=== PATIENT | female | born 1940 | race Caucasian/White ===

== ENCOUNTER 2016-04-20 09:30 | Inpatient (IN) | payer MEDICARE ==
--- NOTE | 2016-04-12 20:08 | HP ---
HISTORY AND PHYSICAL: DATE OF SURGERY/ADMISSION: 04/20/16 PROCEDURE: Right total hip arthroplasty. HISTORY OF PRESENT ILLNESS: Ms. Bradshaw is a 75-year-old female with complaints of right hip pain. She has failed conservative management and has elected to proceed with a right total hip arthroplasty which is scheduled for 04/20/[address] Laureano. PAST MEDICAL HISTORY: 1. Anxiety. 2. Depression. 3. Cervical and lumbar stenosis. 4. Heart attack. 5. Stroke. 6. Skin cancer. 7. Mitral valve prolapse. 8. Hypertension. 9. GERD. 10. Osteoarthritis. 11. Fibromyalgia. 12. Hypothyroidism. PAST SURGICAL HISTORY: 1. Thyroidectomy. 2. Pilonidal cyst removal. 3. Hysterectomy. 4. Cervical fusion. 5. Appendectomy. CURRENT MEDICATIONS: 1. Levothyroxine. 2. Methadone. 3. Diltiazem. 4. Citalopram hydrobromide. ALLERGIES: 1. NSAIDS. 2. PENICILLIN. 3. SULFA. 4. IV DYE. 5. ALL ANTIBIOTICS. 6. HYDROCODONE. 7. ASPIRIN. 8. ALBUTEROL. 9. FENTANYL. FAMILY HISTORY: Alzheimer's, heart disease, asthma, and emphysema. SOCIAL HISTORY: She is a 75-year-old female. She is . Lives alone. She smokes a pack a day of cigarettes for over 50 years. She does not use drugs or alcohol. REVIEW OF SYSTEMS: A complete 14-point review of systems was reviewed with the patient, was positive for light-headedness, history of stroke, seizure, hypothyroidism. She denies any bleeding disorders. She denies history of DVT or pulmonary embolism. PHYSICAL EXAMINATION GENERAL: She is well developed, well nourished in no acute distress. VITAL SIGNS: She stands 5 feet 5 inches tall, weighs 147 pounds. Her blood pressure is 124/54. Heart rate 70. HEENT: Normocephalic, atraumatic. NECK: Supple. No palpable lymph nodes. Trachea is midline. PULMONARY: The lungs are clear to auscultation. No wheezes, rhonchi, or rales. CARDIO: Regular rate and rhythm. Strong S1, S2. No murmurs, gallops, or rubs. ABDOMEN: Soft, nontender, nondistended. NEUROLOGICAL: She is alert and oriented x3. Cranial nerves II through XII are intact. MUSCULOSKELETAL: Right lower extremity: The skin is intact. She walks with an antalgic-type gait favoring her right leg. She has limited range of motion with internal and external rotation of her right hip. She has 2+ dorsalis pedis pulses, intact sensation and her lower extremity muscle group strengths are intact at 5/5. ASSESSMENT AND PLAN: Ms. Bradshaw is a 75-year-old female with complaints of right hip pain. She has failed conservative management and has elected to proceed with a right total hip arthroplasty. The surgery is scheduled for 04/20/[address] Laureano discussed the risks and benefits of the surgery today and all of her questions were answered. Coumadin was sent to her pharmacy for postoperative DVT prophylaxis. She is currently on methadone, which is being managed by Dr. Fermin and we are waiting to hear his recommendations for postoperative pain control. She was cleared by her typecasting machine operator, Dr. Cordova, for the procedure. She will see Dr. Laureano back after the surgery in 10 to 14 days. MELODIE ROD [id number]/[facility] #: [id number] [facility] HOSPITALCaitlin
[~2016-04-20 09:30] MED LIST: Buffered Lidocaine 1% SYRIN* 3 ML/SYR SYRINGE INTRADERM ONE; Famotidine IV* 10 MG/ML 2 ML (20 mg) IV ONE; Gabapentin CAP(*) 300 MG PO ONE
--- NOTE | 2016-06-07 20:08 | HP ---
HISTORY AND PHYSICAL: DATE OF ADMISSION/SURGERY: 06/16/16 DATE OF OFFICE VISIT: 06/04/16 PROCEDURE: Right total hip arthroplasty. SURGEON: Leigh Ann Laureano MD CHIEF COMPLAINT: Right hip pain. HISTORY OF PRESENT ILLNESS: Ms. Bradshaw is a 76-year-old female with complaints of right hip pain. She has failed conservative management and she has elected to proceed with the right total hip arthroplasty, which is scheduled for 06/16/16. PAST MEDICAL HISTORY: Anxiety, depression, bipolar disorder, cervical and lumbar stenosis, coronary artery disease, stroke, melanoma, mitral valve prolapse, hypertension, GERD, osteoarthritis, fibromyalgia, and hypothyroidism. PAST SURGICAL HISTORY: Thyroidectomy, pilonidal cyst removal, hysterectomy, cervical fusion, and appendectomy. CURRENT MEDICATIONS: 1. Levothyroxine. 2. Methadone. 3. Diltiazem. 4. Citalopram hydrobromide. ALLERGIES: To NSAIDs, PENICILLIN, SULFA, IV DYE, ALL ANTIBIOTICS, HYDROCODONE, ASPIRIN, ALBUTEROL, and FENTANYL. FAMILY HISTORY: Alzheimer's, heart disease, asthma, and emphysema. SOCIAL HISTORY: She is 76-year-old female, she is . She lives alone. She smokes half a pack a day for the last 50 years. She denies use of drugs or alcohol. REVIEW OF SYSTEMS: A complete 14-point review of systems was reviewed with the patient, positive for history of stroke, seizures, and hypothyroidism. She denies a history of HIV, hepatitis C, anesthesia problems, history of DVT, or pulmonary embolism. PHYSICAL EXAMINATION GENERAL: She is well-developed, well-nourished, in no acute distress. She is alert and oriented x3. VITAL SIGNS: She stands 5 feet 5 inches tall, weighs 147 pounds. Her blood pressure 130/80, her heart rate 60. HEENT: Normocephalic, atraumatic. NECK: Supple. No palpable lymph nodes. Trachea is midline. PULMONARY: Lungs are clear to auscultation bilaterally. No wheezes or rhonchi. CARDIO: Regular rate and rhythm. Strong S1, S2. No murmurs, gallops, or rubs. ABDOMEN: Soft, nontender, nondistended. NEUROLOGIC: Cranial nerves are II through XII are intact. MUSCULOSKELETAL: Right lower extremity, skin is intact. She has limited range of motion with internal and external rotation of her right hip. She walks with a slightly antalgic type gait, favoring her right leg. Her lower extremity muscle group strengths are intact at 5/5. She has intact sensation and 2+ dorsalis pedis pulses. ASSESSMENT AND PLAN: Ms. Bradshaw is a 76-year-old female with complaints of right hip pain secondary to advanced osteoarthritis. She has elected to proceed with a right total hip arthroplasty, which is scheduled for 06/16/[address] Laureano discussed the risks and the benefits of the surgery at today's visit and all of her questions were answered. She will follow up with Dr. Laureano 10 to 14 days after the surgery. MELODIE ROD [id number]/[facility] #: [id number] MTDD
[2016-06-16] MEDS ORDERED: Dexamethasone IV* 4 MG/ML 1 ML (4 MG) IV SLOW PU ONE (06:00)
[2016-06-16] MEDS ORDERED: Famotidine IV* 10 MG/ML 2 ML (20 mg) IV ONE (06:00)
[2016-06-16] MEDS ORDERED: Buffered Lidocaine 1% SYRIN* 3 ML/SYR SYRINGE INTRADERM ONE (06:00)
[2016-06-16] MEDS ORDERED: Famotidine IV* 10 MG/ML 2 ML (20 mg) ONE (07:20)
[2016-06-16] MEDS ORDERED: Dexamethasone IV* 4 MG/ML 1 ML (4 MG) ONE (07:20)
[2016-06-16] MEDS ORDERED: Clindamycin 900 MG IVPREMIX(* 900 MG/50 ML SDV IV ONE (07:21)
[2016-06-16] MEDS ORDERED: HYDROmorphone* 1 MG/ML 1 ML SYR ONE ×3 (07:37→10:32)
[2016-06-16] MEDS ORDERED: fentaNYL* 50 MCG/ML 2 ML VIAL (100 MCG VIAL) ONE (07:37)
[2016-06-16] MEDS ORDERED: Midazolam* 1 MG/ML 2 ML VIAL (2 MG) ONE (07:37)
[2016-06-16] MEDS ORDERED: Morphine PF AMP (0.5MG/ML)* 5 MG/10 ML AMP ONE (07:38)
[2016-06-16] MEDS ORDERED: Bupivacaine 0.5% SDV PF* 30 ML VIAL ONE ×2 (07:39→08:55)
[2016-06-16] MEDS ORDERED: Dexmedetomidine* 200 MCG/2 ML 2 ML VIAL ONE ×2 (07:39→08:55)
[2016-06-16] MEDS ORDERED: Propofol* 10 MG/ML 20 ML BTL IV PUSH ONE (08:55)
[2016-06-16] MEDS ORDERED: Meperidine SYRINGE* 50 MG/ML ONE (09:06)
[2016-06-16] MEDS ORDERED: Magnesium Hydroxide LIQ* 30 ML UDC PO PRN (11:24)
[2016-06-16] MEDS ORDERED: Polyethylene Glycol 3350* 17 GM PACKET PO PRN (11:24)
[2016-06-16] MEDS ORDERED: Acetaminophen TAB* 325 MG PO PRN (11:24)
[2016-06-16] MEDS ORDERED: Bisacodyl SUPP* 10 MG SUPP PR PRN (11:24)
[2016-06-16] MEDS ORDERED: LACTULOSE* 30 ML UDC PO PRN (11:24)
--- NOTE | 2016-06-16 11:24 | RAD ---
HISTORY: Right hip replacement COMPARISONS: March 01, 2016 VIEWS: 1, portable intraoperative view of the right hip during arthroplasty FINDINGS: Single portable view of the right hip at 9:20 AM demonstrates a right hip arthroplasty with the temporary femoral sizing component IMPRESSION: LIMITED PORTABLE VIEW OF THE RIGHT HIP DURING HIP ARTHROPLASTY
--- NOTE | 2016-06-16 13:02 | RAD ---
INDICATION: Postoperative right hip arthroplasty COMPARISON: Hips March 01, 2016 TECHNIQUE: AP and abducted views of the right hip were acquired FINDINGS: Bones: There is right hip arthroplasty. The prosthesis appears well seated. A cerclage wire is present at the level of the intratrochanteric region. Joint spaces: Right hip arthroplasty. IMPRESSION: RIGHT HIP ARTHROPLASTY.
[2016-06-16] MEDS ORDERED: diPHENhydraMINE IV* 50 MG/ML 1 ml VIAL (BENADRYL) IV PRN (13:08)
[2016-06-16] MEDS ORDERED: Ondansetron INJ* 2 MG/ML VIAL IV PRN (13:08)
[2016-06-16] MEDS ORDERED: DiMENhydriNATE IV* 50 MG/ML VIAL IV PUSH PRN (13:08)
[2016-06-16] MEDS ORDERED: Naloxone* 0.4 MG/ML 1 ML VIAL IV PRN (13:08)
[2016-06-16] MEDS ORDERED: PROCHLORPERAZINE INJ 5 MG/ML 2 ML VIAL IV PRN (13:08)
[2016-06-16] MEDS ORDERED: Nalbuphine* 20 MG/ML 1 ML VIAL IV PRN (13:08)
--- NOTE | 2016-06-16 16:58 | CONS ---
[facility] MEDICINE CONSULTATION REPORT: DATE OF CONSULT: 06/16/16 ATTENDING PHYSICIAN: Dr. Leigh Ann Laureano. CONSULTATION PHYSICIAN: Dr. Cynthia Pizano (dictation provided by Ngoc Orozco NP). REASON FOR CONSULT: Medical co-management in a patient admitted for right total hip arthroplasty. HISTORY OF PRESENT ILLNESS: Ms. Bradshaw is a 76-year-old female with past medical history of anxiety, depression, bipolar disorder, transient ischemic attack, low back pain, hypothyroidism, and heart attack in 1987, who presented to the hospital on 06/16/16 for an elective right total hip arthroplasty with Dr. Laureano. Please see the dictated H and P from Dr. Laureano for complete details. In brief, the patient had failed conservative management and opted for a right total hip arthroplasty today. Ms. Bradshaw is interviewed immediately after her surgery. She provides limited information, but does note that she had thyroidectomy and is currently on levothyroxine. She agrees that she did have history of heart attack, but she is unable to provide me with details. I do note from Dr. Cordova's note from February of 2016 that this heart attack occurred in 1987. She is not currently on any medications other than diltiazem for this cardiac history. The patient states that prior to coming in for surgery, she was feeling in normal state of health. PAST MEDICAL HISTORY: 1. Anxiety. 2. Depression. 3. Bipolar disorder. 4. Cervical lumbar stenosis. 5. History of coronary artery disease with history of SC in 1987. 6. History of transient ischemic attack. 7. History of melanoma. 8. Mitral valve prolapse. 9. Hypertension. 10. GERD. 11. Osteoarthritis. 12. Fibromyalgia. 13. Hypothyroidism. MEDICATIONS: Outpatient are: 1. Levothyroxine 125 mcg daily. 2. Methadone 10 mg 5 times daily. 3. Diltiazem 120 mg daily. 4. Citalopram 10 mg p.o. daily. ALLERGIES: To NSAIDs, PENICILLIN, SULFA, IV DYE, "ALL ANTIBIOTICS," HYDROCODONE , ASPIRIN, ALBUTEROL, and FENTANYL. FAMILY HISTORY: The patient reports both of her parents from old age. SOCIAL HISTORY: The patient lives alone. She gets around with a rolling walker. She states she smokes half a pack of cigarettes per day and has done so for the past 50 years. She denies alcohol or drug use. She states that her friend, Ofelia, would be the healthcare proxy. REVIEW OF SYSTEMS: A 14-point review of systems was completed with Ms. Bradshaw today and all those not mentioned above were negative. PHYSICAL EXAM: Vital Signs: Temperature 96.8, heart rate 51, respiratory rate 16, O2 saturation 100% on 3 L nasal cannula, blood pressure of 105/44. General : Ms. Bradshaw is lying in the bed in the PACU. She is no acute distress. Her only complaint is of having a dry mouth. Neuro: She is alert and oriented x3. She moves all extremities equally. There is no facial asymmetry or focal weakness. Extraocular movements are intact. Lungs are clear to auscultation bilaterally with no accessory muscle use and good aeration. Heart: S1, S2. No murmur, rub, or gallop, and regular. Abdomen is soft and nontender with bowel sounds positive x4. Extremities: No cyanosis or edema. Skin is intact. LABORATORY DATA: On 06/04/16, WBC 10.1, hemoglobin 13.1, hematocrit 40, platelet count 267. Sodium 135, potassium 4.8, chloride 99, serum bicarbonate 33, BUN 11, creatinine 0.72, glucose 82. ASSESSMENT AND PLAN: Ms. Bradshaw is a 76-year-old female with past medical history of coronary artery disease back in 1987 as well as a transient ischemic attack and hypothyroidism, who presents today to the hospital with plans for right total hip arthroplasty. Our recommendations are as follows: 1. Postoperative day 0, status post right total hip arthroplasty: Management will be per Orthopedics. The patient will have PT and OT. The patient will have pain medications with bowel regimen. Her H and H will be monitored. 2. Hypothyroidism. Continue thyroid medication. 3. Hypertension. Continue diltiazem. 4. DVT prophylaxis. Per Ortho. 5. Disposition. To surgical floor. TIME SPENT: Approximately 60 minutes was spent on admission of this patient; more than half the time was spent with the patient at bedside reviewing the events leading up to this hospitalization, performing the physical examination, and reviewing my plan [place] [id number]/[facility] #: [id number] KIARA
[2016-06-16] MEDS ORDERED: Warfarin TAB(*) 6 MG PO ONE (17:00)
[2016-06-16] MEDS: oxyCODONE/Acetamin 5/325 MG* TAB PO PRN ×2 (19:23→22:21)
[2016-06-16] MEDS: Artificial Tear OPHTH.OINT* 3.5 GM RIGHT EYE SCH ×3 (19:26→23:50)
[2016-06-16] MEDS: Docusate CAP* 100 MG PO SCH (21:59)
[2016-06-17] MEDS ORDERED: Ondansetron TAB* 4 MG PO PRN (01:00)
[2016-06-17] MEDS ORDERED: oxyCODONE/Acetamin 5/325 MG* TAB PO PRN (01:00)
[2016-06-17] MEDS ORDERED: diPHENhydraMINE IV* 50 MG/ML 1 ml VIAL (BENADRYL) IV PRN (01:00)
[2016-06-17] MEDS ORDERED: Morphine INJ* 2 MG/ML 1 ML SYRINGE IV PRN (01:00)
[2016-06-17] MEDS ORDERED: oxyCODONE TAB* 5 MG TAB PO PRN (01:00)
[2016-06-17] MEDS: Methadone TAB* 10 MG PO PRN ×3 (01:22→15:28)
[2016-06-17] MEDS: Artificial Tear OPHTH.OINT* 3.5 GM RIGHT EYE SCH ×8 (03:46→23:49)
[2016-06-17] MEDS: oxyCODONE/Acetamin 5/325 MG* TAB PO PRN ×3 (04:04→19:19)
[2016-06-17 05:19] LABS: BUN/Creatinine Ratio 16.9 (8-20); Calcium 8.3 mg/dL (8.6-10.3); EGFR African American 128.1 (>60); EGFR Non-African American 99.6 (>60); Potassium 3.8 mmol/L (3.5-5.0)
[2016-06-17] MEDS: Levothyroxine TAB* 125 MCG TAB PO SCH (05:22)
[2016-06-17 07:00] LABS: Hematocrit 30 % (35-47); Hemoglobin 9.9 g/dl (12.0-16.0)
[2016-06-17] MEDS ORDERED: Vancomycin(*) 1,000 MG in NS 0.9% 250 ML* 250 ML IVPB ONE (08:00)
[2016-06-17] MEDS ORDERED: NS 0.9% 250 ML* 250 ML ONE (08:18)
[2016-06-17] MEDS: Docusate CAP* 100 MG PO SCH ×2 (08:48→19:19)
[2016-06-17] MEDS: Enoxaparin(*) 30 MG/0.3 ML SYR SUBCUT SCH (08:48)
[2016-06-17] MEDS: Citalopram TAB* 10 MG PO SCH (08:48)
[2016-06-17] MEDS ORDERED: Diltiazem CD CAP* 120 MG PO SCH (09:00)
[2016-06-17] MEDS: Diltiazem CD CAP* 120 MG PO SCH (09:57)
--- NOTE | 2016-06-17 10:57 | PN ---
Progress Note - Progress Note SOAP: Subjective: []Patient seen sitting at edge of her bed. Appears to be quite comfortable. Denies SOB, CP or dizziness. Objective: [] Vital Signs Temp 98.0 F 06/17/16 07:03 Pulse 63 06/17/16 07:03 Resp 18 06/17/16 09:52 BP 111/47 06/17/16 07:03 Pulse Ox 97 06/17/16 08:00 Intake & Output 06/16/16 06/17/16 06/17/16 18:59 06:59 18:59 Intake Total 2840 2165 680 Output Total 750 1500 600 Balance 2090 665 80 Weight 167 lb Intake: IV Fluids 2750 980 900MG CLINDAMYCIN 50 LR 2700 980 Oral 90 1185 680 Output: Urine 600 Pretty 750 1500 Other: Estimated Blood Loss 200 Comment Laboratory Results - last 24 hr 06/17/16 06/17/16 04:50 06:50 Hgb 9.9 L Hct 30 L Sodium 131 L Potassium 3.8 Chloride 103 Carbon Dioxide 21 L Anion Gap 7 BUN 10 Creatinine 0.59 Est GFR ( Amer) 128.1 Est GFR (Non-Af Amer) 99.6 BUN/Creatinine Ratio 16.9 Glucose 159 H Calcium 8.3 L Right hip dressing is intact and dry +DF/PF right ankle calf NT and soft neurovascularly intact Assessment: []s/p Right total hip arthroplasty POD #1 Plan: []PT/OT-WBAT Coumadin with Lovenox bridge INR pending, dose to follow
--- NOTE | 2016-06-17 13:15 | OP ---
OPERATIVE REPORT: DATE OF OPERATION: 06/16/16 DATE OF : 44 SURGEON: Leigh Ann Laureano MD AUTOMOBILE MECHANIC APPRENTICE: MELODIE Faulkner This multimedia assistant was crucial throughout the procedure for prepping, retraction, manipulation of the le g and did help throughout the procedure. ANESTHESIOLOGIST: Dr. Hightower. ANESTHESIA: Spinal. PRE-OP DIAGNOSIS: Severe end-stage degenerative osteoarthritis of the right hip joint. POST-OP DIAGNOSIS: Severe end-stage degenerative osteoarthritis of the right hip joint. OPERATIVE PROCEDURE: Right total hip arthroplasty. COMPLICATIONS: None. EBL: 300 cc. SPECIMEN: Femoral head and acetabular reaming sent to pathology. HARDWARE USED: This is uncemented Arabi total hip hardware. For the cup, a Tritanium hemispheric al shell 56D, 115 mm and 120 mm 6.5 plate screw was used. MDM liner cement was 42E. For the stem, an Accolade TMZF size 3.5 with a 127-degree neck. For the head, a Arabi LFIT V40 femoral head 28, +0 and for the insert, a methodist MDM X3 28/48/42E. One Dall-Miles Cable, 2.0 beaded cable was used prophylactically before placement of the femoral stem. BRIEF HISTORY/INDICATIONS: Ms. Bradshaw is a 76-year-old female with years of increasingly severe h ip pain. Radiographs showed prior dysplasia with severe end- stage degeneration of the joint. Femo ral head and acetabulum had deformity and goqq-so-creo contact. The patient failed conservative mitra atment with antiinflammatories, pain medication, ambulatory assistive devices and intraarticular inj ection. She elected to undergo right total hip arthroplasty due to continued pain and decreased malcom lity of life. Informed consent was obtained from the patient. She understood the risks of the proc edure included but were not limited to bleeding, infection, damage to nearby structures, continued p ain, need for further surgery, intraoperative fracture, nerve palsy, hardware failure, loosening, di slocation, leg length discrepancy, stroke, heart attack, blood clot and . She wished to procee d. INTRAOPERATIVE FINDINGS: Intraoperatively, the patient had deformity of the superolateral acetabulu m and femoral head. Complete loss of cartilage. Osteopenia was noted. DESCRIPTION OF PROCEDURE: Ms. Bradshaw was identified in the preanesthesia unit. The right lower ex tremity was marked as the correct operative side. Informed consent was signed and placed in the [facility] rt. The patient was taken to the operating room and placed under spinal anesthesia. A Pretty cathet er was placed. Right lower extremity was prepped and draped in the usual sterile fashion. Preop ti me-out was made to correctly identify the patient, side and site. Appropriate perioperative antibio tics were given within 1 hour of incision. A 12 cm posterior hip incision was made with a #10 blade and carried down to the lateral fascial lay er. Lateral fascial layer was incised in line with the skin incision. Charnley retractor was place d. The piriformis and conjoint tendons were identified. These were elevated off the posterolateral femur using electrocautery and tagged with two #5 Ethibond. Next, electrocautery was used to make a standard posterolateral capsular flap. This was also tagged with two #5 Ethibond. The hip was ca refully dislocated. The femoral head was noted to have extreme deformation. Lesser troch to the tahir ter of the femoral head was estimated at 55 mm. The appropriate femoral neck cut was made using an oscillating saw. Femoral head was sent to pathology. The femur was retracted anteriorly. After appropriate placement of retractors, the acetabulum was w ell visualized. Long-handled knife was used to remove any remaining labrum from the acetabular rim. There was significant deformation and loss of bone along the superolateral acetabulum. The acetab ulum was sequentially reamed up to a size 56. A 56 trial had good fit. A 56 Trident Tritanium nevaeh spherical shell was chosen as the final implant. A good bleeding bone bed had been obtained. This cup was impacted into the acetabulum and had good stability. There was appropriate anteversion and a bduction angle. 115 mm and 120 mm screws placed in the superior posterior quadrant for extra stabil ity. An MDM cement with liner 42E was chosen and impacted into the acetabulum. Stability of the li ner was checked and rechecked and noted to be stable. Next, attention was turned to preparation of the proximal femur. Canal finder was used to enter the proximal femur. It was noted that the proximal femur was significantly osteopenic. The femur was sequentially broached up to a size 3.5. A 3.5 broach had good stability and appropriate anteversion . A 127-degree neck trial was chosen as well as the 28, +0 femoral head. Hip was reduced and taken through a range of motion. The hip was stable in all positions. Leg lengths and soft tissue tensi on were deemed to be appropriate. A broach was left in place. One Dall-Miles Cable was placed around the proximal femur using the linda ropriate technique. This cable was placed prophylactically due to the patient's significant osteope benjamin. Next, the trials were removed. Final implant for the femoral stem was an Accolade TMZF size 3.5 wit h 127-degree neck. This was impacted into the femoral canal. There was excellent stability and ante version. The head chosen was an LFIT E40 femoral head 28, +0. The insert chosen was a 28/48/42E, M DM methodist X3 insert. This was impacted onto the femoral neck without difficulty. The hip was r educed and taken through a range of motion. The hip was stable in all positions. The hip was copiously irrigated with sterile saline. Previously tagged capsule and tendons were nicolás pproximated to the posterolateral femur through 2 trochanteric drill holes. The lateral fascial lay er was reapproximated using an interrupted #1 Vicryl's. The rest of the incision was closed in a la yered fashion using 0 and 2-0 Vicryl's. Skin was closed using running 3-0 Monocryl and Dermabond. Sterile Adaptic, 4x4s and paper tapes were used to cover the incision. The patient's anesthesia was reversed without difficulty. She was taken to the PACU in stable condi tion. Intended weightbearing will be weightbearing as tolerated with posterior hip precautions. In tended DVTs prophylaxis will be Coumadin with Lovenox bridge. [id number]/[facility] #: [id number]
[2016-06-17] MEDS ORDERED: Warfarin TAB(*) 6 MG PO ONE (17:00)
--- NOTE | 2016-06-17 17:04 | PN ---
Subjective Date of Service: 06/17/16 Interval History: Pt feels well. Post op pain controlled Objective Active Medications: Acetaminophen (Tylenol Tab*) 650 mg PO Q4H PRN PRN Reason: PAIN OR TEMPERATURE Artificial Tears (Lacrilube Oint*) 1 applic RIGHT EYE Q3HR [facility] Last Admin: 06/17/16 14:24 Dose: Not Given Bisacodyl (Dulcolax Supp*) [address] DAILY PRN PRN Reason: constipation Citalopram Hydrobromide (Celexa Tab*) 10 mg PO DAILY [facility] Last Admin: 06/17/16 08:48 Dose: 10 mg Diltiazem HCl (Cardizem Cd Cap*) 120 mg PO DAILY [facility] Last Admin: 06/17/16 09:57 Dose: 120 mg Diphenhydramine HCl (Benadryl Iv*) 12.5 mg IV Q6H PRN PRN Reason: PRURITIS Docusate Sodium (Colace Cap*) 100 mg PO BID [facility] Last Admin: 06/17/16 08:48 Dose: 100 mg Enoxaparin Sodium (Lovenox(*)) 30 mg SUBCUT Q24H [facility] Last Admin: 06/17/16 08:48 Dose: 30 mg Lactated Ringer's (Lactated Ringers 1000 Ml Bag*) 1,000 mls @ 100 mls/hr IV PER RATE [facility] Last Admin: 06/17/16 01:23 Dose: 100 mls/hr Lactulose (Lactulose*) 30 ml PO Q6H PRN PRN Reason: constipation Levothyroxine Sodium (Synthroid Tab*) 125 mcg PO DAILY@0600 [facility] Last Admin: 06/17/16 05:22 Dose: 125 mcg Magnesium Hydroxide (Milk Of Magnesia Liq*) 30 ml PO Q6H PRN PRN Reason: constipation Methadone HCl (Dolophine Tab*) 10 mg PO Q6H PRN PRN Reason: NOT SPECIFIED Last Admin: 06/17/16 15:28 Dose: 10 mg Morphine Sulfate (Morphine Inj (Syringe)*) 2 mg IV Q2H PRN PRN Reason: PAIN Ondansetron HCl (Zofran Tab*) 4 mg PO Q6H PRN PRN Reason: NAUSEA Oxycodone HCl (Roxycodone Tab*) 10 mg PO Q4H PRN PRN Reason: SEVERE PAIN Oxycodone/Acetaminophen (Percocet 5/325 Tab*) 1 tab PO Q3H PRN PRN Reason: PAIN - MODERATE Oxycodone/Acetaminophen (Percocet 5/325 Tab*) 2 tab PO Q3H PRN PRN Reason: PAIN - MODERATE Last Admin: 06/17/16 12:41 Dose: 2 tab Polyethylene Glycol/Electrolytes (Miralax*) 17 gm PO DAILY PRN PRN Reason: Constipation Warfarin Sodium (Coumadin Tab(*)) 6 mg PO ONCE@1700 ONE PRN Reason: Protocol Stop: 06/17/16 17:01 Vital Signs 06/16/16 06/16/16 06/16/16 18:38 19:23 19:38 Temperature 97.4 F Pulse Rate 58 Respiratory 16 20 20 Rate Blood Pressure 121/56 (mmHg) O2 Sat by Pulse 100 Oximetry 06/16/16 06/16/16 06/16/16 20:25 21:23 22:21 Temperature 97.9 F Pulse Rate 59 Respiratory 16 16 16 Rate Blood Pressure 120/54 (mmHg) O2 Sat by Pulse 99 Oximetry 06/16/16 06/17/16 06/17/16 23:51 00:21 01:22 Temperature 98.0 F Pulse Rate 58 Respiratory 16 16 16 Rate Blood Pressure 124/76 (mmHg) O2 Sat by Pulse 97 Oximetry 06/17/16 06/17/16 06/17/16 03:22 03:37 04:04 Temperature 97.8 F Pulse Rate 58 Respiratory 16 16 18 Rate Blood Pressure 121/44 (mmHg) O2 Sat by Pulse 99 Oximetry 06/17/16 06/17/16 06/17/16 05:55 07:03 07:52 Temperature 98.0 F Pulse Rate 63 Respiratory 16 16 18 Rate Blood Pressure 111/47 (mmHg) O2 Sat by Pulse 97 Oximetry 06/17/16 06/17/16 06/17/16 08:00 09:52 11:03 Temperature Pulse Rate Respiratory 18 18 Rate Blood Pressure (mmHg) O2 Sat by Pulse 97 98 Oximetry 06/17/16 06/17/16 06/17/16 11:17 12:41 14:41 Temperature 98.2 F Pulse Rate 67 Respiratory 16 18 16 Rate Blood Pressure 105/34 (mmHg) O2 Sat by Pulse 98 Oximetry 04/27/17 04/27/17 15:28 15:30 Temperature 98.2 F Pulse Rate 72 Respiratory 18 16 Rate Blood Pressure 122/48 (mmHg) O2 Sat by Pulse 98 Oximetry Oxygen Devices in Use Now: None Appearance: 76 yo F in nAd, AAOx3 Eyes: No Scleral Icterus, PERRLA Ears/Nose/Mouth/Throat: NL Teeth, Lips, Gums, Mucous Membranes Moist Neck: NL Appearance and Movements; NL JVP, Trachea Midline Respiratory: Symmetrical Chest Expansion and Respiratory Effort, Clear to Auscultation Cardiovascular: NL Sounds; No Murmurs; No JVD, RRR Abdominal: NL Sounds; No Tenderness; No Distention Lymphatic: No Cervical Adenopathy Extremities: No Edema, No Clubbing, Cyanosis Skin: No Nodules or Sclerosis, - - R post op hip examined, post op dressings not removed Neurological: Alert and Oriented x 3, NL Muscle Strength and Tone Result Diagrams: 06/17/16 06:50 06/17/16 04:50 Assess/Plan/Problems-Billing Assessment: 76 yo F with h/o depression, HTN, hypothyroidism s/p elective R hip replacement - Patient Problems (1) Status post total replacement of right hip Comment: as per Dr. Laureano Plan to d/c home in 1-2 days (2) Hypothyroidism Comment: cont Synthroid (3) HTN (hypertension) Comment: Controlled, cont Cardizem (4) Depression Comment: controlled, cont Celexa (5) DVT prophylaxis Comment: coumadin/Lovenox as per ortho (6) Acute blood loss as cause of postoperative anemia Comment: Hb down to 9 post op. no transfusion indicated Status and Disposition: Thank you for consult. will sign off for now, please call if needed.
[2016-06-17] MEDS: Cyclobenzaprine TAB* 10 MG PO PRN (21:15)
[2016-06-18] MEDS: Artificial Tear OPHTH.OINT* 3.5 GM RIGHT EYE SCH ×5 (02:14→13:53)
[2016-06-18] MEDS: Methadone TAB* 10 MG PO PRN ×2 (03:29→10:45)
[2016-06-18] MEDS: Levothyroxine TAB* 125 MCG TAB PO SCH (05:47)
[2016-06-18] MEDS: Cyclobenzaprine TAB* 10 MG PO PRN ×2 (05:52→14:40)
[2016-06-18 07:01] LABS: Hematocrit 29 % (35-47); Hemoglobin 9.6 g/dl (12.0-16.0); Mean Platelet Volume 9 um3 (7.4-10.4)
[2016-06-18] MEDS: Diltiazem CD CAP* 120 MG PO SCH (08:20)
[2016-06-18] MEDS: oxyCODONE/Acetamin 5/325 MG* TAB PO PRN (08:21)
[2016-06-18] MEDS: Docusate CAP* 100 MG PO SCH (08:21)
[2016-06-18] MEDS: Citalopram TAB* 10 MG PO SCH (08:21)
[2016-06-18] MEDS: Enoxaparin(*) 30 MG/0.3 ML SYR SUBCUT SCH (08:24)
--- NOTE | 2016-06-18 10:10 | PN ---
Progress Note - Progress Note SOAP: Subjective: Pt is doing well. Her pain is well controlled. She denies CP, SOB, calf pain or F/C. VSS overnight Objective: PE- 76 y/o F NAD, sitting in chair RLE- dressing changed, inc c/d/i, +F/E at knee, calf soft nontender, +2 DP pulse , sensation intact Vital Signs Temp Pulse Resp BP Pulse Ox 99.1 F 80 16 127/47 95 06/18/16 07:50 06/18/16 07:50 06/18/16 08:44 06/18/16 07:50 06/18/16 08:44 Laboratory Results - last 24 hr 06/17/16 06/18/16 06/18/16 11:05 06:07 06:07 Hgb 9.6 L Hct 29 L Plt Count 194 MPV 9 INR (Anticoag Therapy) 1.36 H 1.50 H Assessment: POD 2 S/P R ADELE Plan: DC home with VNS today Cont coumadin, colace and percocet WBAT cont PT/OT F/U 10-14 days post op
[2016-06-18 12:10] VITALS: BP 95/42
--- NOTE | 2016-06-19 04:23 | DS ---
DISCHARGE SUMMARY: DATE OF ADMISSION: 06/16/16 DATE OF SURGERY: 06/16/16 DATE OF DISCHARGE: 06/18/16 PROVIDERS: Leigh Ann Laureano MD ADMITTING DIAGNOSIS: Status post right total hip replacement due to severe right hip osteoarthritis . SECONDARY DIAGNOSES: 1. Anxiety. 2. Depression. 3. Cervical and lumbar stenosis. 4. Heart attack. 5. Stroke. 6. Skin cancer. 7. Mitral valve prolapse. 8. Hypertension. 9. Gastroesophageal reflux disease. 10. Osteoarthritis. 11. Fibromyalgia. 12. Hypothyroidism. HISTORY OF PRESENT ILLNESS: Ms. Bradshaw is a 76-year-old female who presented to the clinic with o ngoing right hip pain due to severe osteoarthritis. She failed conservative measures and therefore agreed to undergo a right total hip replacement with Dr. Laureano on 06/16/16. HOSPITAL COURSE: Ms. Bradshaw was admitted to [facility] on 06/16/16. She underwent [facility] total hip replacement with Dr. Laureano. Postoperatively, she recovered in the Short-Stay Surgical Unit. On postop day 1, the Pretty was removed. She was able to urinate on her own. She advanced to a regular diet without difficulty and her pain was controlled with oral pain medications. She was restarted on home medications. Her labs and vitals remained stable. She was able to weightbear as tolerated on the right lower extremity. She advanced appropriately with physical therapy and occupa tional therapy. DVT prophylaxis was managed with Lovenox and Coumadin until a therapeutic INR was r eached. The INR on 06/17/16 was 1.36 and on 06/18/16 was 1.50. Coumadin dose on 06/16/16 was 6 mg and on 06/17/16 was 6 mg. By postop day 2, she was orthopedically and medically stable for discharg e to home with VNS services. PHYSICAL EXAMINATION: General: A 76-year-old well-developed, well-nourished female, in no acute di stress, sitting in chair. Right lower extremity dressing was changed. Incision was clean, dry, and intact. Positive flexion and extension of the knee. Calf is soft and nontender; +2 dorsalis pedis pulse. Sensation intact to light touch. DISCHARGE CONDITION: Stable. DISCHARGE MEDICATIONS: Home medications continued on discharge to include: 1. Methadone 10 mg, see instructions. 2. Diltiazem 1 by mouth every morning. 3. Citalopram 10 mg by mouth daily. 4. Levothyroxine 125 mcg p.o. daily. New scripts on discharge to include: 1. Docusate 100 mg by mouth 2 to 3 times a day for constipation. 2. Warfarin 2 mg by mouth daily as directed by doctor. 3. Percocet 1 to 2 tabs every 4 to 6 hours as needed for pain. DISCHARGE INSTRUCTIONS: The patient may shower on postop day 4. Light dressing applied to the hip. Do not submerge in water to include bath or swimming pool. She is weightbearing as tolerated, righ t lower extremity. She should continue physical therapy and occupational therapy. She will follow posterior hip precautions. Percocet will be used for pain management, Colace for constipation, and she will continue Coumadin for DVT prophylaxis. Her dose on 06/18/16 will be 6 mg, on 06/19/16 will be 4 mg, and on 06/20/16 will be 4 mg and redraw on Tuesday. She will call the office or go to the [facility] if she develops chest pain, shortness of breath, calf pain, or fever greater than 101.5. She will follow up with Dr. Laureano in 10 to 14 days postop. MELODIE BEAUCHAMP [id number]/[facility] #: [id number]
== END 2016-06-18 15:55 | disposition home health service (06) | DRG 470 ==
LOC: AA 06-16 06:55 → SSU 06-16 11:24
PROVIDERS: ADMIT Orthopaedic Surgery Adult Reconstructive Orthopaedic Surgery; ATTEND Orthopaedic Surgery Adult Reconstructive Orthopaedic Surgery
PROC: 0SR90JA Replacement of Right Hip Joint with Synthetic Substitute, Uncemented, Open Approach (ICD-10-PCS; principal; 2016-06-16 08:30)
DX: M16.11 Unilateral primary osteoarthritis, right hip (principal); J44.9 Chronic obstructive pulmonary disease, unspecified; I34.1 Nonrheumatic mitral (valve) prolapse; D62 Acute posthemorrhagic anemia; F41.9 Anxiety disorder, unspecified; F32.9 Major depressive disorder, single episode, unspecified; M48.06 Spinal stenosis, lumbar region; E03.9 Hypothyroidism, unspecified; K21.9 Gastro-esophageal reflux disease without esophagitis; M79.7 Fibromyalgia; I10 Essential (primary) hypertension; F31.9 Bipolar disorder, unspecified; I25.10 Atherosclerotic heart disease of native coronary artery without angina pectoris; K58.9 Irritable bowel syndrome, unspecified; G47.33 Obstructive sleep apnea (adult) (pediatric); M85.88 Other specified disorders of bone density and structure, other site; F17.210 Nicotine dependence, cigarettes, uncomplicated; Z79.01 Long term (current) use of anticoagulants; Z86.73 Personal history of transient ischemic attack (TIA), and cerebral infarction without residual deficits; I25.2 Old myocardial infarction; Z90.710 Acquired absence of both cervix and uterus; Z88.6 Allergy status to analgesic agent; Z88.0 Allergy status to penicillin; Z88.2 Allergy status to sulfonamides; Z88.1 Allergy status to other antibiotic agents; Z91.041 Radiographic dye allergy status; Z88.8 Allergy status to other drugs, medicaments and biological substances; Z82.49 Family history of ischemic heart disease and other diseases of the circulatory system; Z82.5 Family history of asthma and other chronic lower respiratory diseases; Z81.8 Family history of other mental and behavioral disorders; Z85.820 Personal history of malignant melanoma of skin; Z98.1 Arthrodesis status
CPT/HCPCS: 36415; 80048; 85014; 85018; 85049; 85610; 88304; 88311; 94760; A9270-GY; C1713; C1776; J1100; J1170; J1650; J2250; J2704; J3010; J3370

== ENCOUNTER 2016-06-28 16:07 | Emergency (ER) | payer MEDICARE ==
[2016-06-28] MEDS ORDERED: Methadone TAB* 10 MG PO ONE (18:00)
--- NOTE | 2016-06-28 18:56 | ED ---
reno Power Timothy, scribed for Rick Christina MD on 06/28/16 at 1804 . Lower Extremity - HPI Summary HPI Summary: William Bradshaw is a 76 yo female presenting to [facility] with bilateral leg swelling and 7/10 pain with concern for DVT. She was seen by her home health nurse today which raised concern. She recently had a right hip operation, and returned home 06/25/16, and noticed swelling in her right lower extremity, and had thrush in her mouth. She states the pain is most on the inside of her right leg. There is pain in both legs, and she feels like she is unable to bear weight secondary to pain. She also c/o some SOB and cough today. She denies vomiting or diarrhea, but has had some nausea upon arrival to [facility]. She has self-medicated with oxycodone at 1000 this morning, and 10mg methadone. Her MHx includes thyroid disease, MO, mitral valve prolapse, angina, heart murmur, palpitations, fibromylagia, CVA, TIA, seizure, spinal cord deformities, bronchitis, kidney infection, osteoarthritis, bursitis in a shoulder, depression , anxiety, tobacco use. - History of Current Complaint Chief Complaint: EDExtremityLower Stated Complaint: R/O DVT-SENT BY DR ANDERSON Time Seen by Provider: 06/28/16 17:50 Hx Obtained From: Patient Onset of Pain: Days Onset/Duration: Still Present Severity Initially: Moderate Severity Currently: Moderate Pain Intensity: 7 Pain Scale Used: 0-10 Numeric Timing: Constant Location: Is Discrete @ - bilateral lower extremities Associated Signs And Symptoms: Positive: Swelling, Redness Aggravating Factor(s): Standing Able to Bear Weight: No - Allergies/Home Medications Allergies/Adverse Reactions: Allergies Allergy/AdvReac Type Severity Reaction Status Date / Time Aspirin Allergy Severe Swelling Verified 06/16/16 07:12 Of Face,Lips,& Throat Iodine Allergy Severe Hives, Verified 06/16/16 07:12 tongue swelling, throat closing Penicillins Allergy Severe hives, Verified 06/16/16 07:12 tongue swelling, throat closing Sulfa Antibiotics Allergy Severe Hives, Verified 06/16/16 07:12 tongue swelling, throat closing Chlorhexidine Allergy Intermediate redness, Verified 06/16/16 07:12 [From Hibiclens] rash Fentanyl Allergy Altered Verified 06/16/16 07:12 Mental Status, itching "all antibiotics except Allergy Severe Hives, Uncoded 06/16/16 07:12 azithromyci tongue swelling, throat closing "all otc pain relievers" Allergy Severe Hives, Uncoded 06/16/16 07:12 TONGUE SWELLING, THROAT CLOSING contrast dye Allergy Severe Anaphylatic Uncoded 06/16/16 07:12 Shock NSAIDS Allergy Severe TONGUE Uncoded 06/16/16 07:12 SWELLS, THROAT CLOSES tape Allergy Severe Blisters Uncoded 06/16/16 07:12 PMH/Surg Hx/FS Hx/Imm Hx Endocrine/Hematology History: Reports: Hx Thyroid Disease Denies: Hx Diabetes Cardiovascular History: Reports: Hx Angina - HX OF, Hx Valvular Heart Disease - MVP, Other Cardiovascular Problems/Disorders - MITRAL VALVE PROLAPSE Denies: Hx Congestive Heart Failure, Hx Hypertension, Hx Pacemaker/ICD Respiratory History: Reports: Hx Sleep Apnea - DX BUT DOES NOT USE CPAP, Other Respiratory Problems/Disorders - DENIES COPD BUT HAS BILAT INSP WHEEZING, DENIES SOB BUT IS NOT AMBULATORY GI History: Reports: Hx Gastroesophageal Reflux Disease, Hx Hiatal Hernia - long time ago, resolved with weight loss, Hx Irritable Bowel - controlled with diet, Other GI Disorders - CONSTIPATION History: Reports: Hx Kidney Infection Denies: Hx Dialysis, Hx Renal Disease Musculoskeletal History: Reports: Hx Arthritis - OSTEO, Hx Back Problems, Hx Bursitis - one of shoulders, Hx Tendonitis Sensory History: Reports: Hx Cataracts, Hx Contacts or Glasses - READING Denies: Hx Hearing Aid Opthamlomology History: Reports: Hx Cataracts, Hx Contacts or Glasses - READING Neurological History: Reports: Hx Seizures - HX OF TREATMENT FOR MINOR SEIZURES SOMETIMES BETWEEN [id number], Hx Transient Ischemic Attacks (TIA), Other Neuro Impairments/Disorders - STATES SHE GETS FUZZY, SHE HAS VERTIGO, SEVERAL TIA'2015 Comment Only: Hx Nerve Disease - HX OF FIBROMYALAGIA Psychiatric History: Reports: Hx Anxiety, Hx Depression Denies: Hx Panic Disorder - Cancer History Cancer Type, Location and Year: SKIN CARCINOMA-YEARS AGO - Surgical History Surgery Procedure, Year, and Place: THYROIDECTOMY - 12/2012, [facility]. 1992 CSP -C3 ,4,C5-6= FUSION, [facility]. OVARIES REMOVED -2001, [place], [place]. 1977 UTERUS- REMOVED, [facility]. APPENDECTOMY - 1963, (STATES APPENDIX RUPTURED, BUT DENIES SURGERY). 1969 RIGHT EYELID- REMOVED CHELAZIUM - [facility]. CARDIAC CATH - NO STENTS , [place], [place]. SPINAL SURGERY 2015. pylonidal cyst to lower spine surgicallly removed 1968 Hx Anesthesia Reactions: Yes - when given valium - changed in mentation - becomes mean Infectious Disease History: No Infectious Disease History: Reports: Hx Shingles - HX OF IN 2006 Denies: Hx Clostridium Difficile, Hx Hepatitis, Hx Human Immunodeficiency Virus (HIV), Hx of Known/Suspected MRSA, Hx Tuberculosis, History Other Infectious Disease, Traveled Outside the [place] in Last 30 Days - Family History Known Family History: Positive: Cardiac Disease, Hypertension Negative: Diabetes - Social History Alcohol Use: None Substance Use Type: Reports: None Hx Tobacco Use: Yes Smoking Status (MU): Heavy Every Day Tobacco Smoker Type: Cigarettes Amount Used/How Often: 1/2 ppd since 1963 Length of Time of Smoking/Using Tobacco: 51 YEARS Have You Smoked in the Last Year: Yes Review of Systems Constitutional: Negative Eyes: Negative ENT: Other - thrush Dx Cardiovascular: Negative Positive: Shortness Of Breath, Cough Positive: Nausea. Negative: Vomiting, Diarrhea Genitourinary: Negative Positive: Edema - bilateral lower extremities, Other - pain in lower extremities bilaterally Positive: Other - heat in legs bilaterally Neurological: Negative Psychological: Normal All Other Systems Reviewed And Are Negative: Yes Physical Exam - Summary Physical Exam Summary: The patient is well-nourished in no acute distress and in no acute pain, but slightly uncomfortable.. The skin is warm and dry and skin color reflects adequate perfusion. She is not diaphoretic or cyanotic. HEENT: The head is normocephalic and atraumatic. The pupils are equal and reactive. The conjunctivae are clear and without drainage. Nares are patent and without drainage. Mouth reveals dry mucous membranes and the throat is without erythema and exudate. There is no evidence of thrush in the throat. The external ears are intact. The ear canals are patent and without drainage. The tympanic membranes are intact. The tongue is bright red, when questioned Pt states she was sucking on something prior to exam. Neck is supple with full range of motion and non-tender. There are no carotid bruits. There is no neck vein distension. Respiratory: Chest is non-tender. There are crackles in the right base of the lungs. Cardiovascular: Hear is regular rate and rhythm. There is no murmur or rub auscultated. There is no peripheral edema and pulses are symmetrical and equal. Abdomen: The abdomen is soft and non-tender. There are normal bowel sounds heard in all four quadrants and there is no organomegaly palpated. Musculoskeletal: There is no back pain noted. There is good capillary refill. There is swelling of the right thigh with an incision from her recent surgery that does not look infected. There is some warmth on the inferior aspect around the incision, and swelling extends to the knee. There is no swelling of the lower leg. Neurological: Patient is alert and oriented to person, place and time. The patient has symmetrical motor strength in all four extremities. Cranial nerves are grossly intact. Deep tendon reflexes are symmetrical and equal in all four extremities. Psychiatric: The patient has an appropriate affect and does not exhibit any anxiety or depression. Triage Information Reviewed: Yes Vital Signs On Initial Exam: Initial Vitals Temp Pulse Resp BP Pulse Ox 99.3 F 76 20 146/63 97 06/28/16 16:09 06/28/16 16:09 06/28/16 16:09 06/28/16 16:09 06/28/16 16:09 Vital Signs Reviewed: Yes - Jo Coma Scale Coma Scale Total: 15 Diagnostics - Vital Signs Vital Signs Temp Pulse Resp BP Pulse Ox 06/28/16 16:11 99.1 F 74 20 146/63 98 06/28/16 16:09 99.3 F 76 20 146/63 97 - Laboratory Lab Statement: Any lab studies that have been ordered have been reviewed, and results considered in the medical decision making process. Lower Extremity Course/Dx - Course Assessment/Plan: William Bradshaw is a 76 yo female presenting to [facility] with bilateral leg swelling and 7/10 pain with heat since 06/25/16, as well as SOB and cough today. In the ED she received methadone for her pain. She will be signed out to Dr. Guerrero with cough and bilateral leg pain pending her lab work, CXR, and RLE US. - Diagnoses Differential Diagnosis/HQI/PQRI: Positive: DVT, Other - pneumonia Provider Diagnoses: Bilateral leg pain, Cough Discharge - Discharge Plan Condition: Stable Disposition: OTHER Discharge Disposition Comment: signed out to Dr. Gurerero pending lab work, CXR, and RLE US. Referrals: Shane Fermin MD [Primary Care Provider] - The documentation as recorded by the reno ash Timothy accurately reflects the service I personally performed and the decisions made by me, Rick Christina MD.
--- NOTE | 2016-06-28 19:14 | RAD ---
Indication: Cough and shortness of breath. Recent RIGHT hip surgery. Bilateral leg swelling. Concern for DVT in the RIGHT leg. Comparison: April 12, 2016 chest radiograph. Technique: Sitting AP and lateral chest views. Report: Moderate prominence of the interstitial markings increased over the prior exam. Subtle peripheral interlobular septal thickening. Negative for pleural effusion or pneumothorax. Negative for cardiomegaly. Unremarkable central pulmonary vasculature and mediastinal contours. IMPRESSION: The constellation of findings is concerning for mild interstitial pulmonary edema. Correlate with clinical presentation as bronchopneumonia could have a similar radiographic appearance.
--- NOTE | 2016-06-28 19:36 | RAD ---
INDICATION: RIGHT hip replacement June 18, 2016. RIGHT leg pain and edema. COMPARISON: None. TECHNIQUE: Olivo scale, color Doppler, and spectral analysis of the deep veins of the RIGHT lower extremity. Vessel compression, phasicity, and augmentation assessed. REPORT: The RIGHT common femoral, great saphenous, profunda femoral, femoral, popliteal, peroneal, and posterior tibial veins are patent. Patency of the LEFT common femoral vein documented. IMPRESSION: No evidence for RIGHT lower extremity deep venous thrombosis.
[2016-06-28 20:37] LABS: Albumin 3.5 g/dL (3.2-5.2); BUN/Creatinine Ratio 10.1 (8-20); Calcium 8.8 mg/dL (8.6-10.3); EGFR Non-African American 83.2 (>60); Potassium 4.1 mmol/L (3.5-5.0); Total Bilirubin 0.4 mg/dL (0.2-1.0); Total Protein 6.5 g/dL (6.4-8.9)
[2016-06-28 20:52] LABS: Hematocrit 32 % (35-47); Hemoglobin 10.4 g/dl (12.0-16.0); Mean Corpuscular HGB Conc 32 g/dl (31-36); Mean Corpuscular Hemoglobin 29 pg (27-31); Mean Corpuscular Volume 91 fL (80-97); Mean Platelet Volume 8 um3 (7.4-10.4); Red Blood Count 3.55 10^6/ul (4.0-5.4); Red Cell Distribution Width 15 % (10.5-15); White Blood Count 13.1 10^3/ul (3.5-10.8)
[2016-06-28 22:14] VITALS: BP 128/61
== END 2016-06-28 22:15 ==
LOC: ED 16:07
DX: M79.606 Pain in leg, unspecified (principal); R60.0 Localized edema; R06.02 Shortness of breath; R05 Cough; R11.0 Nausea
CPT/HCPCS: 36415; 71020; 80053; 85025; 85610; 99283; A9270-GY

== ENCOUNTER 2016-11-02 07:30 | Inpatient (IN) | payer MEDICARE ==
--- NOTE | 2016-10-27 16:20 | HP ---
PREOPERATIVE HISTORY AND PHYSICAL: DATE OF ADMISSION/SURGERY: 11/02/16 ATTENDING SURGEON: Leigh Ann Laureano MD * (DICTATED BY MELODIE BEAUCHAMP) PROCEDURE: Left total hip replacement. CHIEF COMPLAINT: Left hip pain. HISTORY OF PRESENT ILLNESS: Ms. Bradshaw is a 76-year-old female who presents to the clinic for ongoing left hip pain due to severe osteoarthritis. She has failed conservative measures and has therefore, agreed to undergo a left total hip replacement with Dr. Laureano on 11/02/16. PAST MEDICAL HISTORY: 1. UTI. 2. MN. 3. Hypertension. 4. Mitral valve prolapse. 5. GERD. 6. Spinal stenosis. 7. History of stroke. 8. Depression. 9. Anxiety. 10. Bipolar. 11. Hypothyroidism. 12. Fibromyalgia. 13. Melanoma. 14. Osteoarthritis. PAST SURGICAL HISTORY: 1. Hysterectomy. 2. Thyroidectomy. 3. Spinal stenosis surgery. 4. Spine surgery in 1992. 5. Cervical fusion. 6. Pilonidal cyst. 7. Appendectomy. 8. Right total hip arthroplasty. Denies prior complications with anesthesia. MEDICATIONS: 1. Cyclobenzaprine 10 mg 1 by mouth twice a day as needed. 2. Levothyroxine 125 mcg 1 by mouth daily. 3. Methadone 10 mg 1 by mouth 5 times a day. 4. Citalopram 10 mg once a day. 5. Cardizem CD 120 mg 1 by mouth every day. ALLERGIES: NSAIDS, PENICILLIN, SULFA ANTIBIOTICS, IV DYE, HYDROCODONE, ASPIRIN , ALBUTEROL, FENTANYL, ADHESIVE TAPE, OXYCODONE, TYLENOL. FAMILY HISTORY: Positive for heart disease, Alzheimer's, asthma, and emphysema. SOCIAL HISTORY: The patient is disabled. She currently smokes 2 to 3 cigarettes a day. She denies alcohol use or illegal drug use. REVIEW OF SYSTEMS: A 14-point review of systems was reviewed with the patient. Positive for the current complaint; otherwise negative. Denies chest pain, shortness of breath. Denies history of DVT or PE. Denies bleeding disorder. PHYSICAL EXAMINATION GENERAL: Well-developed, well-nourished 76-year-old female, in no acute distress. Alert and oriented x3. Appropriate mood and affect. VITAL SIGNS: Height 64, weight 161. Pulse 76, blood pressure 135/63, temperature 98.2. BMI 27.6. HEENT: Normocephalic, atraumatic. PERRLA. Throat clear. NECK: Supple. PULMONARY: Lungs clear to auscultation bilaterally. No wheezing, rhonchi, or rales. CARDIO: Regular rate and rhythm. S1 and S2. No murmurs, gallops, or rubs. No edema. ABDOMEN: Positive bowel sounds. Soft, nontender. NEURO: Alert and oriented x3. Cranial nerves grossly intact. Sensation intact to light touch. MUSCULOSKELETAL: Left lower extremity, skin is intact. No abrasions or open wounds. No palpable masses or lymph nodes. Hip flexion to 80 degrees, 0 degrees internal rotation or external rotation with groin pain. She cannot actively flex or abduct the hip. +5/5 strength to the ankle dorsiflexion and plantar flexion. +2 dorsalis pedis pulse. Sensation is intact to light touch distally. DIAGNOSTIC STUDIES: Multiple view x-rays of the left hip revealed severe bone- on- bone arthritis with severe deformity of the femoral head, subchondral sclerosis and cyst formation. IMPRESSION: Severe left hip osteoarthritis. PLAN: The patient is scheduled to undergo a left total hip replacement with Dr. Laureano on 11/02/16. She will return to us 10 to 14 days postop for followup and suture removal. The patient states that she does not tolerate oxycodone well and that she does not tolerate Coumadin well either. The patient is also allergic to TYLENOL. MELODIE BEAUCHAMP [id number]/[facility] #: [id number] [facility] HOSPITALCaitlin
[~2016-11-02 07:30] MED LIST changes: +Buffered Lidocaine 0.9% SYRIN* 5 ML/SYR SYRINGE INTRADERM ONE; -Buffered Lidocaine 1% SYRIN* 3 ML/SYR SYRINGE INTRADERM ONE; +Dexamethasone IV* 4 MG/ML 1 ML (4 MG) IV SLOW PU ONE; -Gabapentin CAP(*) 300 MG PO ONE
[2016-11-02] MEDS ORDERED: Propofol* 500 MG/50 ML BTL ONE (09:27)
[2016-11-02] MEDS ORDERED: Bupivacaine 0.5% SDV PF* 30 ML VIAL ONE (09:29)
[2016-11-02] MEDS ORDERED: Dexamethasone IV* 4 MG/ML 1 ML (4 MG) ONE (09:30)
[2016-11-02] MEDS ORDERED: Buffered Lidocaine 0.9% SYRIN* 5 ML/SYR SYRINGE ONE (09:30)
[2016-11-02] MEDS ORDERED: Famotidine IV* 10 MG/ML 2 ML (20 mg) ONE (09:30)
[2016-11-02] MEDS ORDERED: Clindamycin 900 MG IVPREMIX(* 900 MG/50 ML SDV IV ONE (09:30)
[2016-11-02] MEDS ORDERED: Midazolam* 1 MG/ML 10 ML VIAL (10 MG) ONE (11:33)
[2016-11-02] MEDS ORDERED: Morphine PF AMP (0.5MG/ML)* 5 MG/10 ML AMP ONE (11:34)
[2016-11-02] MEDS ORDERED: Sterile Water for Inj* 10 ML ONE (12:47)
[2016-11-02] MEDS ORDERED: EPHEDrine (Pressors)* 50 MG/ML VIAL ONE ×2 (12:47→13:06)
[2016-11-02] MEDS ORDERED: KETAMINE HCL* 50 MG/ML 10 ML VIAL ONE (12:55)
[2016-11-02] MEDS ORDERED: VASOPRESSIN 20 UNITS/ML 1 ML VIAL ONE (13:00)
[2016-11-02] MEDS ORDERED: Phenylephrine IV* 40 MCG/ML 10 ML SYRINGE ONE (13:04)
[2016-11-02] MEDS ORDERED: Glycopyrrolate IV* 0.2 MG/ML 1 ML VIAL ONE (13:05)
[2016-11-02] MEDS ORDERED: Ondansetron INJ* 2 MG/ML VIAL ONE (13:05)
[2016-11-02] MEDS ORDERED: Levalbuterol 0.63MG/3ML NEB* UNIT OF USE INH PRN (13:23)
[2016-11-02] MEDS ORDERED: oxyCODONE/Acetamin 5/325 MG* TAB PO PRN ×2 (13:23→18:35)
[2016-11-02] MEDS ORDERED: HYDROmorphone* 1 MG/ML 1 ML CARPUJECT IV PRN (13:23)
[2016-11-02] MEDS ORDERED: HYDROcodone/ACETAMIN 5-325 MG* 1 TAB PO PRN ×2 (13:23→18:35)
[2016-11-02] MEDS ORDERED: diPHENhydraMINE IV* 50 MG/ML 1 ml VIAL (BENADRYL) IV PRN ×2 (13:23→15:40)
[2016-11-02] MEDS ORDERED: Scopolomine PATCH Remove* 1 NOTE MISC PATCH OFF PRN (13:27)
[2016-11-02] MEDS ORDERED: Naloxone* 0.4 MG/ML 1 ML VIAL IV PRN (13:27)
[2016-11-02] MEDS ORDERED: Scopolamine 1.5 mg* PATCH TRANSDERM PRN (13:27)
--- NOTE | 2016-11-02 14:44 | RAD ---
Indication: Left hip replacement. Single view of the pelvis demonstrates left femoral reamer in place. Left acetabular cup in place. IMPRESSION: Intraoperative control film demonstrates left femoral reamer and left acetabular cup in place.
[2016-11-02] MEDS ORDERED: Magnesium Hydroxide LIQ* 30 ML UDC PO PRN (15:40)
[2016-11-02] MEDS ORDERED: Bisacodyl SUPP* 10 MG SUPP PR PRN (15:40)
[2016-11-02] MEDS ORDERED: Ondansetron INJ* 2 MG/ML VIAL IV PRN (15:40)
[2016-11-02] MEDS ORDERED: Acetaminophen TAB* 325 MG PO PRN (15:40)
[2016-11-02] MEDS ORDERED: Enoxaparin(*) 30 MG/0.3 ML SYR SUBCUT SCH (16:00)
[2016-11-02] MEDS ORDERED: D5W 1/2 NS 1000 ML BAG* 1,000 ML IV SCH (16:00)
[2016-11-02] MEDS ORDERED: ceFAZolin 1 GM VIAL(*) 1 GM in NS 0.9% 50 ML* 50 ML IVPB SCH (16:00)
--- NOTE | 2016-11-02 16:18 | RAD ---
HISTORY: Status post left hip arthroplasty COMPARISONS: October 30, 2016 VIEWS: 3, Frontal view of the pelvis with frontal and crosstable lateral views of the left hip FINDINGS: BONE DENSITY: Normal. BONES: The patient is status post bilateral hip arthroplasty. On the left, there is no hardware failure or osteolysis. JOINTS: The patient is status post bilateral hip arthroplasty. ALIGNMENT: There is no dislocation. SOFT TISSUES: Unremarkable. OTHER FINDINGS: Degenerative changes are noted of the spine IMPRESSION: STATUS POST BILATERAL HIP ARTHROPLASTY
[2016-11-02] MEDS ORDERED: Warfarin TAB(*) 6 MG PO ONE (17:00)
[2016-11-02] MEDS ORDERED: Sulfamethox/Trimethoprim DS 800/160* TAB PO SCH (21:00)
[2016-11-02] MEDS: Clindamycin 600 MG IVPREMIX(* 600 MG/50 ML SDV IV SCH (21:13)
[2016-11-02] MEDS: Docusate CAP* 100 MG PO SCH (21:20)
[2016-11-02] MEDS: oxyCODONE TAB* 5 MG TAB PO PRN (21:28)
--- NOTE | 2016-11-02 22:27 | CONS ---
CC: Dr. Fermin; Dr. Laureano * CONSULTATION REPORT: DATE OF CONSULT: 11/02/16 PRIMARY CARE PROVIDER: Dr. Fermin. ATTENDING PHYSICIAN WHILE IN THE HOSPITAL: Nura Adame MD (report dictated by Klaus Bateman NP). REQUESTING PHYSICIAN FOR CONSULTATION: Dr. Laureano. REASON FOR MEDICAL CONSULTATION: Evaluation and management of comorbid medical conditions. HISTORY OF PRESENT ILLNESS: I refer you to Dr. Laureano's H and P for further details. In short, Ms. Bradshaw is a 76-year-old female patient with a significant history of arthritis. She also has a history of GERD, hypertension , hypothyroidism, fibromyalgia, degenerative disk disease, arthritis, mitral valve prolapse, history of [place] and CVA. She came in to Dr. Laureano's services as she has been failing conservative measures and having ongoing left hip pain that was due to severe osteoarthritis that was affecting her activities of daily living. It was felt that she would benefit from a total hip replacement and because of that, she presented to the orthopedic service today and had a left total hip replaced. Because of her complex history, we were asked to evaluate in consult. She was evaluated in the PACU. She said that she is feeling well with the exception that when she goes to sit up, she is a little dizzy; but towards the end of my interview, she said actually the dizziness has gone away and she is feeling better. She denies having any chest pain. She denies having any shortness of breath. She denies having any abdominal pain. She denies feeling any nausea. She denies having any chest discomfort. She denies having any abdominal pain. Said she has a little bit of pain in her hip that is very well controlled. She has numbness in her lower extremities from her spinal anesthetic, but other than that she says that she is now wiggling her toes quite well. She denied having any headache, but because of her medical complexity, we were asked to evaluate in consult. PAST MEDICAL HISTORY: Significant for: 1. GERD. 2. Hypertension. 3. Hypothyroidism. 4. Fibromyalgia. 5. Degenerative joint disease. 6. Arthritis. 7. History of mitral valve prolapse. 8. History of [place]. 9. History of CVA. PAST SURGICAL HISTORY: She has had a: 1. Cervical spine surgery. 2. Hysterectomy. 3. Thyroidectomy. 4. Left total hip replacement done today. HOME MEDICATIONS: According to her list include: 1. Methadone 10 mg p.o. take as directed. 2. Synthroid 125 mcg daily. 3. Diltiazem extended release 1 capsule p.o. daily. 4. Flexeril 10 mg in the morning and 10 mg at bedtime. 5. Celexa 10 mg p.o. daily. ALLERGIES TO MEDICATIONS: Include ASPIRIN, IODINE, PENICILLIN, SULFA, CHLORHEXIDINE, COLACE, FENTANYL, ALL ANTIBIOTICS except azithromycin, ALL OTC PAIN RELIEVERS, CONTRAST DYE, NSAIDS and TAPE. FAMILY HISTORY: Her mother lived at the age of 101, of old age. Father in his 70s because of pneumonia. SOCIAL HISTORY: She still smokes about a half a pack a day, has been smoking her entire life. She does not drink alcohol. Surrogate decision maker, she does not wish to appointment one at this point. She does not know anybody that is close enough to her that would be willing to make those decisions. REVIEW OF SYSTEMS: There is no documented fever. She denied having any significant weight changes. There was no double vision. She denies having any ear discharge. There was no rhinorrhea. No sore throat. No thyroid enlargement. Denied having any chest pain. There is no orthopnea. No nocturnal dyspnea. There was no abdominal pain. No nausea, no vomiting. No dysuria, no frequency. There is no seizure. No loss of consciousness. No pruritus and no skin ulceration. Review of 14 systems completed, all others negative. PHYSICAL EXAM: Vital Signs: Blood pressure initially when she came in, she was 124/60. Preop and postop, 97/50 was the last reading, but she before that was 86/51, heart rate 78, respirations 20, O2 sat 96%, temperature 97.0. General: At this time, Ms. Bradshaw is a 76-year-old female patient. She is sitting in the PACU bed. She does not appear to be in any acute distress. HEENT: Head is atraumatic, normocephalic. Eyes: EOMs are intact. Sclerae anicteric and not pale. Neck: Supple. Throat: Oral mucosa appears to be moist. No oropharyngeal erythema. Heart: Sounds S1 and S2. Regular rate and rhythm. No murmurs, rubs or gallops. Lungs: Clear to auscultation bilaterally. No wheezes, rales or rhonchi. Abdomen: Soft, flat, nontender. Bowel sounds hypoactive. Extremities: Pulses were 2+ throughout. She is not able to move the lower extremities at this point because she is in a hip adductor pillow. Distal CSM checks are intact. Sensation is not intact yet and she has good circulation and good pulses bilaterally. Upper extremities, she had 5/5 strength. Neurologically, she is is awake, alert, oriented x3. Tongue midline. On Car Supervisor are equal. No gross focal deficits. Skin: Intact except in the left hip, there is an incision which is covered with an ABD dressing that is clean, dry and intact. DIAGNOSTIC STUDIES/LAB DATA: Preop revealed WBC of 11.2, RBC of 4.14, hemoglobin of 11.7, hematocrit of 36, platelet count of 296. The INR was 0.93. Sodium 135, potassium 4.5, chloride of 99, bicarb 31, BUN 10, creatinine 0.72 , glucose of 80. Total bili 0.3, AST 18, ALT 11. Urine showed 2+ leukocyte esterase, 2+ rbc's. She did have a negative urine culture. She had an EKG preop, which showed a normal sinus rhythm. No ST elevations or T -wave inversions. According to her cardiology notes, she had a stress test in September of this year, which showed no reversal of ischemia. She had a chest x-ray in June of this year, which showed constellation of findings concerning for mild interstitial pulmonary edema. I do not see a repeat one done since then. Old medical records were reviewed. ASSESSMENT AND PLAN: Ms. Bradshaw is a 76-year-old female patient coming to the orthopedic service for an elective total hip arthroplasty. We were asked to evaluate in consult. My recommendations at this point are: 1. Status post left total hip arthroplasty. I will defer the management to Dr. Laureano and her team. 2. History of myocardial infarction. She is not on a beta-pankaj and she is also not on a statin or an aspirin, she is allergic to an ASPIRIN. She is on diltiazem. We will continue with this. Monitor for chest pain. Currently, she could follow with her PCP and her Cardiology as well. 3. History of cerebrovascular accident. Again, allergic to ASPIRIN. She is not on any antiplatelet. This is something that could be considered, but I would not initiate this now. She is going to be on warfarin after and can follow with her primary. 4. Hypertension. Her blood pressure is on the low side here and it is probably contributing to the dizziness along with her anesthetic. We will go ahead and hydrate her. I am going to hold her diltiazem. She says it is improving with fluids, so I will continue to monitor this and continue to follow closely. 5. History of gastroesophageal reflux disease. Continue meds as prescribed. 6. History of hypothyroidism. Continue Synthroid. 7. History of fibromyalgia. She will be on narcotics while she is here and pain medications. So, I am going to hold her methadone. She can restart the methadone when she is discharged. 8. Degenerative disk disease. Follow with her primary. 9. Arthritis. Follow with her primary, it is stable. 10. History of mitral valve prolapse. Follow with Cardiology. 11. DVT prophylaxis. We will defer to primary team. 12. Code status. Full code. 13. Fluids, electrolytes, nutrition. I have recommended a heart healthy diet. 14. Tobacco abuse. I have recommended smoking cessation. TIME SPENT: Time spent on the consult was 60 minutes, greater than half the time was spent face to face with the patient obtaining my history and physical, the other half of the time was spent on going over the plan of care with the patient and implementing the place of care. I did discuss the plan of care with my attending Dr. Adame, he is in agreement. KLAUS BATEMAN NP [id number]/[facility] #: [id number] KIARA
[2016-11-03] MEDS: oxyCODONE TAB* 5 MG TAB PO PRN ×5 (01:04→23:12)
[2016-11-03] MEDS: Clindamycin 600 MG IVPREMIX(* 600 MG/50 ML SDV IV SCH ×2 (04:19→13:12)
[2016-11-03] MEDS ORDERED: Morphine INJ* 4 MG/ML 1 ML CARPUJECT IV PRN (04:30)
[2016-11-03] MEDS ORDERED: oxyCODONE/Acetamin 5/325 MG* TAB PO PRN ×2 (04:30)
[2016-11-03 05:43] LABS: Hematocrit 25 % (35-47); Hemoglobin 8.3 g/dl (12.0-16.0)
[2016-11-03 06:00] LABS: BUN/Creatinine Ratio 16.7 (8-20); EGFR African American 112.6 (>60); EGFR Non-African American 87.5 (>60); Potassium 3.7 mmol/L (3.5-5.0)
[2016-11-03] MEDS: Levothyroxine TAB* 125 MCG TAB PO SCH (06:05)
[2016-11-03] MEDS: Docusate CAP* 100 MG PO SCH ×2 (08:55→20:15)
[2016-11-03] MEDS: Citalopram TAB* 10 MG PO SCH (08:55)
[2016-11-03] MEDS: Vitamin THERAPEUTIC TAB PO SCH (08:56)
[2016-11-03] MEDS: Enoxaparin(*) 30 MG/0.3 ML SYR SUBCUT SCH (08:58)
[2016-11-03] MEDS ORDERED: DILTIAZEM HCL PO SCH ×2 (09:00)
--- NOTE | 2016-11-03 11:56 | PN ---
Progress Note - Progress Note Date of Service: 11/03/16 SOAP: Subjective: [Pt was seen this am sitting up in bed. She states that her hip is a little stiff today unlike the last time with the opposite hip. She aslo states that her knee is a little stiff today too. She denies any n/t. No chest pain, cough or SOB. No calf pain. ] Objective: [General: Pt is alert, awake and oriented. NAD LLE: Abduction pillow is still in place. Dressing is clean, dry and intact. Calf is soft and non tender. + df/pf. NVI. ] Vital Signs Temp 98.3 F 11/03/16 07:36 Pulse 72 11/03/16 11:23 Resp 16 11/03/16 11:23 BP 122/47 11/03/16 11:23 Pulse Ox 97 11/03/16 11:23 Intake & Output 11/02/16 11/03/16 11/03/16 18:59 06:59 18:59 Intake Total 1550 2614 225 Output Total 650 800 300 Balance 900 1814 -75 Weight 161 lb Intake: IV Fluids 1550 979 900MG CLINDAMYCIN 50 ABX - CLINDAMYCIN 68 LR 1500 911 Oral 1635 225 Output: Pretty 250 800 300 Estimated Blood Loss 400 Assessment: [POD 1 S/P LTHA] Plan: [ INR: 1.09, Warfarin 8mg tonight PT/OT Pretty out today D/C abduction pillow once up Dressing change tomorrow.
--- NOTE | 2016-11-03 13:29 | PN ---
Subjective Date of Service: 11/03/16 Interval History: Feels good. Just walked to the bathroom. Complains only of minor pain in the left hip. No chest pain, nausea, vomiting, constipation, or diarrhea. No fevers. Family History: Unchanged from Admission Social History: Unchanged from Admission Past Medical History: Unchanged from Admission Objective Active Medications: Acetaminophen (Tylenol Tab*) 650 mg PO Q4H PRN PRN Reason: PAIN OR TEMPERATURE Bisacodyl (Dulcolax Supp*) 10 mg RI DAILY PRN PRN Reason: constipation Citalopram Hydrobromide (Celexa Tab*) 10 mg PO DAILY [facility] [place] Last Admin: 11/03/16 08:55 Dose: 10 mg Diphenhydramine HCl (Benadryl Iv*) 25 mg IV Q6H PRN PRN Reason: itching or insomnia Docusate Sodium (Colace Cap*) 100 mg PO BID [facility] [place] Last Admin: 11/03/16 08:55 Dose: Not Given Enoxaparin Sodium (Lovenox(*)) 30 mg SUBCUT DAILY [facility] [place] Last Admin: 11/03/16 08:58 Dose: 30 mg Dextrose/Sodium Chloride (D5w 1/2 Ns 1000 Ml Bag*) 1,000 mls @ 75 mls/hr IV PER RATE [facility] [place] Last Admin: 11/03/16 03:19 Dose: 75 mls/hr Lactulose (Lactulose*) 30 ml PO Q6H PRN PRN Reason: constipation Levothyroxine Sodium (Synthroid Tab*) 125 mcg PO DAILY@0600 [facility] [place] Last Admin: 11/03/16 06:05 Dose: 125 mcg Magnesium Hydroxide (Milk Of Magnesia Liq*) 30 ml PO Q6H PRN PRN Reason: constipation Morphine Sulfate (Morphine Inj (Syringe)*) 2 mg IV Q2H PRN PRN Reason: PAIN - UNCONTROLLED Multivitamins (Theragran Tab*) 1 tab PO DAILY [facility] [place] Last Admin: 11/03/16 08:56 Dose: 1 tab Ondansetron HCl (Zofran Inj*) 4 mg IV Q6H PRN PRN Reason: nausea Last Admin: 11/03/16 13:16 Dose: 4 mg Oxycodone HCl (Roxycodone Tab*) 10 mg PO Q4H PRN PRN Reason: PAIN - SEVERE Last Admin: 11/03/16 13:10 Dose: 10 mg Oxycodone/Acetaminophen (Percocet 5/325 Tab*) 1 tab PO Q4H PRN PRN Reason: PAIN - MODERATE Oxycodone/Acetaminophen (Percocet 5/325 Tab*) 2 tab PO Q3H PRN PRN Reason: PAIN - MODERATE TO SEVERE Pharmacy Profile Note (Scopolomine Patch Remove*) 1 note PATCH OFF .AFTER 72 HOURS PRN PRN Reason: nausea Stop: 11/05/16 13:28 Warfarin Sodium (Coumadin Tab(*)) 8 mg PO ONCE@1700 ONE PRN Reason: Protocol Stop: 11/03/16 17:01 Vital Signs 11/02/16 11/02/16 11/02/16 15:35 15:40 15:45 Temperature 97.0 F Pulse Rate 75 75 77 Respiratory 16 20 18 Rate Blood Pressure 90/46 81/30 86/51 (mmHg) O2 Sat by Pulse 100 99 99 Oximetry 11/02/16 11/02/16 11/02/16 16:00 16:15 16:30 Temperature Pulse Rate 78 79 73 Respiratory 20 21 18 Rate Blood Pressure 98/71 90/51 (mmHg) O2 Sat by Pulse 96 98 97 Oximetry 11/02/16 11/02/16 11/02/16 16:46 17:08 17:50 Temperature 97.7 F Pulse Rate 71 70 Respiratory 18 13 18 Rate Blood Pressure 90/44 96/34 (mmHg) O2 Sat by Pulse 100 92 Oximetry 11/02/16 11/02/16 11/02/16 17:57 18:30 18:32 Temperature 97.7 F 97.4 F Pulse Rate 70 79 Respiratory 16 17 Rate Blood Pressure 96/34 95/34 (mmHg) O2 Sat by Pulse 92 96 98 Oximetry 11/02/16 11/02/16 11/02/16 19:19 19:52 21:21 Temperature 98.0 F 98.3 F 98.4 F Pulse Rate 85 80 96 Respiratory 18 17 18 Rate Blood Pressure 108/47 124/49 121/42 (mmHg) O2 Sat by Pulse 98 98 96 Oximetry 11/02/16 11/02/16 11/02/16 21:28 21:54 23:09 Temperature 98.5 F Pulse Rate 87 Respiratory 18 18 16 Rate Blood Pressure 136/91 (mmHg) O2 Sat by Pulse 98 Oximetry 11/03/16 11/03/16 11/03/16 00:56 01:00 01:04 Temperature Pulse Rate Respiratory 20 20 18 Rate Blood Pressure (mmHg) O2 Sat by Pulse Oximetry 11/03/16 11/03/16 11/03/16 02:10 02:35 03:26 Temperature 99.1 F Pulse Rate 73 Respiratory 16 18 Rate Blood Pressure 114/47 (mmHg) O2 Sat by Pulse 98 95 Oximetry 11/03/16 11/03/16 11/03/16 04:37 06:00 07:36 Temperature 98.3 F Pulse Rate 63 Respiratory 16 16 16 Rate Blood Pressure 106/44 (mmHg) O2 Sat by Pulse 96 Oximetry 11/03/16 11/03/16 11/03/16 08:00 08:56 10:56 Temperature Pulse Rate Respiratory 20 20 18 Rate Blood Pressure (mmHg) O2 Sat by Pulse 96 Oximetry 11/03/16 11/03/16 11:23 13:10 Temperature Pulse Rate 72 Respiratory 16 18 Rate Blood Pressure 122/47 (mmHg) O2 Sat by Pulse 97 Oximetry Oxygen Devices in Use Now: None Appearance: alert, sitting up in recliner, no distress Eyes: No Scleral Icterus, PERRLA Ears/Nose/Mouth/Throat: - - dentures Neck: NL Appearance and Movements; NL JVP, Trachea Midline Respiratory: Symmetrical Chest Expansion and Respiratory Effort, Clear to Auscultation Cardiovascular: NL Sounds; No Murmurs; No JVD, RRR Abdominal: NL Sounds; No Tenderness; No Distention, No Hepatosplenomegaly Lymphatic: No Cervical Adenopathy Extremities: No Edema, - - L hip incision clean Skin: No Rash or Ulcers Neurological: Alert and Oriented x 3, NL Sensation Result Diagrams: 11/03/16 05:35 11/03/16 05:35 Assess/Plan/Problems-Billing Assessment: 1. POD #1, left hip arthroplasty Pain controlled, ambulation/PT per ortho. 2. Hyponatremia corrected sodium for hyperglycemia is 132 (though glucose may be falsely elevated due to D5). Appears mildly volume deplete; would change 1/2 NS/D5 to NS. 3. Hyperglycemia May have been drawn from the arm where the D5 was running, as it does not correlate to prior glucose readings; she should have DM screening, as it may affect wound healing if she has a new diagnosis of DM. 4. HTN. Okay to resume cardizem. 5. History of CAD/CVA she is allergic to aspirin, so she should be on plavix. She is unsure if she has been put on plavix. Okay to hold post-op and while on warfarin, but this needs to be addressed as an outpatient and I discussed this with her. She should also be on a statin, which I am adding. 6. Normocytic Anemia Likely tash-operative blood loss; denies melena, hematochezia, no hematoma. Continue to monitor.
[2016-11-03] MEDS: NS 0.9% 1000 ML* 1,000 ML IV SCH ×2 (14:19→23:07)
[2016-11-03] MEDS: Calcium Carbonate CHEW TAB* 500 MG (TUMS) PO PRN (16:52)
[2016-11-03] MEDS ORDERED: Warfarin TAB(*) 4 MG PO ONE (17:00)
--- NOTE | 2016-11-03 17:10 | RAD ---
INDICATION: Left knee pain COMPARISON: None TECHNIQUE: AP and crosstable lateral views were obtained. FINDINGS: There is underlying osteopenia. The joint spaces are preserved. There is no joint effusion. There is no focal bony lesion. IMPRESSION: NO ACUTE FINDINGS. NO SIGNIFICANT OSTEOARTHRITIC CHANGES.
--- NOTE | 2016-11-03 17:24 | RAD ---
INDICATION: Left leg pain COMPARISON: Left hip November 02, 2016 TECHNIQUE: 2 views were obtained. FINDINGS: There is left hip arthroplasty. The prosthesis appears normally seated. There are no acute bony changes. The soft tissues are intact IMPRESSION: LEFT HIP ARTHROPLASTY. NO ACUTE FINDINGS.
[2016-11-03] MEDS: Atorvastatin* 10 MG TAB PO SCH (20:15)
--- NOTE | 2016-11-03 23:06 | OP ---
DATE OF OPERATION: 11/02/16 - ROOM #346 DATE OF : 44 ATTENDING SURGEON: Leigh Ann Laureano MD VOLUNTEER SERVICES DIRECTOR: MELODIE Zabala. Ruthie did help throughout the procedure with preparation of the leg, wound retraction, manipulation of the hip and wound closure. ANESTHESIOLOGIST: Dr. Trinidad Brown. ANESTHESIA: Spinal. PRE-OP DIAGNOSIS: Severe end-stage degenerative osteoarthritis of the left hip joint. POST-OP DIAGNOSIS: Severe end-stage degenerative osteoarthritis of the left hip joint. OPERATIVE PROCEDURE: Left total hip arthroplasty. COMPLICATIONS: None. ESTIMATED BLOOD LOSS: 400 cc. SPECIMEN: Femoral head and acetabular reaming sent to pathology. HARDWARE USED: This is [place] uncemented total hip hardware. For the cup, a Tritanium hemispherical shell 58F 120 mm and one 15 mm [place] gap plate screw, cementless MDM liner 46F. For the femoral stem, an Accolade TMZF size 4 with a 127- degree neck. For the head, an LFIT [place] V40 femoral head 28 -4. For the insert, a [place] MDM 28/52/46F. BRIEF HISTORY/INDICATIONS: Ms. 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 She has severe pain and has failed anti- inflammatories, pain medication, intraarticular injections, and physical therapy. Radiographs showed advanced arthritis of the joint with [id number] contact and acetabular deformity and wear. She elected to undergo left total hip arthroplasty due to continued pain and decreased quality of life. Informed consent was obtained from the patient. She understood the risks of the surgery included, but were not limited to bleeding, infection, damage to nearby structures, continued pain, need for further surgery, intraoperative fracture, nerve palsy, hardware failure or loosening, dislocation, leg length discrepancy, stroke, heart attack, blood clot, and . She wished to proceed. INTRAOPERATIVE FINDINGS: Intraoperatively, the patient had end-stage wear of the acetabulum with subchondral sclerosis and cyst formation, very thin medial wall was encountered. On the femoral side, significant osteopenia was encountered. DESCRIPTION OF PROCEDURE: Ms. Bradshaw was identified in the preanesthesia unit. Her left lower extremity was marked as the correct operative side. Informed consent was signed and placed in the chart. The patient was taken to the operating room and placed under spinal anesthesia. A Pretty catheter was placed. The patient was placed in the right lateral decubitus on the peg board with all bony prominences well padded. Left lower extremity was prepped and draped in the usual sterile fashion. Preop time-out was made to correctly identify the patient's side and site. Appropriate perioperative antibiotics were given within 1 hour of incision. A 12-cm posterior hip incision was made and carried down to the lateral fascial layer. Lateral fascial layer was incised in line with the skin incision. A Charnley retractor was placed. The piriformis and conjoint tendons were identified on the posterolateral capsule and elevated off the capsule using electrocautery. These were tagged with two #5 Ethibonds. Next, electrocautery was used to make a standard posterolateral capsular flap and this was also tagged with two #5 Ethibonds. The hip was carefully dislocated. The head was deformed with significant bone loss. Lesser troch to center of the femoral head was estimated to be around 52 mm. Oscillating saw was used to make the appropriate femoral neck cut. Femoral head was sent to pathology. The femur was carefully retracted anteriorly. After appropriate placement of retractors, the acetabulum was visualized. A long handled knife was used to remove any remaining labrum from the acetabular rim. The acetabulum was noted to have extreme loss of bone with thin bony rim, thin posterior wall and thin medial wall. The acetabulum was sequentially reamed up to a size 57. Bleeding subchondral bone was encountered. A 57 trial had good fit. Final implant chosen was a 58F Trident Tritanium hemispherical shell. This was impacted into the acetabulum without difficulty and had good fit. Anteversion and abduction angles were appropriate. One 15 mm and one 20 mm screws placed in the superior posterior quadrant. A MDM cementless liner 46F was chosen as the insert. This was impacted into the acetabular cup without difficulty. Stability of the insert was checked and rechecked and noted to be stable. Attention was next turned to preparation of the proximal femur. A canal finder was used to enter the proximal femoral canal. Once again, significant osteopenia was noted. Femoral canal was sequentially broached up to a size 4, which had good fit and appropriate anteversion. A 127-degree neck trial was chosen with a 28 +0 head trial. Lesser troch to center of the femoral head measured 60 mm. Therefore, a 28 -4 femoral head was chosen with an MDM insert, which was appropriate. The lesser troch to the center of the femoral head measured 55 mm. The hip was reduced and taken through a range of motion. The hip was stable in all positions with appropriate soft tissue tension. The hip was carefully dislocated. All trials were carefully removed. Final implant chosen was an Accolade TMZF size 4 with a 127-degree neck. This was impacted into the femoral canal without difficulty. Good stability and appropriate anteversion were obtained. Final head chosen was a [place] LFIT V40 femoral head 28 -4 with an MDM [place] X3 insert 28/52/46F. This was impacted on to the femoral neck without difficulty. The hip was reduced and taken through a range of motion. The hip was stable in all positions. The hip was copiously irrigated with sterile saline. The previously tagged capsule and tendons were reapproximated from the posterolateral femur. The lateral fascial layer was closed using interrupted #1 Vicryls. The rest of the incision was closed in a layered fashion using 0 and 2-0 Vicryls. Skin was closed using running 3-0 Monocryl and Dermabond. Sterile Adaptic, 4x4s and paper tape were used to cover the incision. The patient's anesthesia was reversed without difficulty. She was taken to the PACU in stable condition. Intended weightbearing will be weightbearing as tolerated. Intended DVT prophylaxis will be Coumadin with a Lovenox bridge. [id number]/[facility] #: [id number] KIARA
[2016-11-04] MEDS: oxyCODONE TAB* 5 MG TAB PO PRN ×5 (05:17→23:54)
[2016-11-04] MEDS: Levothyroxine TAB* 125 MCG TAB PO SCH (05:17)
[2016-11-04 06:57] LABS: Hematocrit 27 % (35-47); Hemoglobin 8.8 g/dl (12.0-16.0)
--- NOTE | 2016-11-04 09:17 | PN ---
Progress Note - Progress Note Date of Service: 11/04/16 SOAP: Subjective: [Pt reports she is doing fairly well. Pain improved since yesterday. Has been OOB WBAT L KATLYN, working with PT. Denies CP, SOB, Dizzines, n/v. Has appetite. Would like to go home tomorrow.] Objective: [A and O x 3, NAD. Seated in chair eating breakfast. L hip dressing changed. Surgical incision benign. Skin edges well- approximated. No erythema or drainage. Swelling down into thigh, compressible. Calves soft, [place]. Distal NV function, gross motor intact. Vital Signs: Temp Pulse Resp BP Pulse Ox 98.2 F 80 18 117/50 94 11/04/16 07:23 11/04/16 07:23 11/04/16 08:00 11/04/16 07:23 11/04/16 08:00 Laboratory Results - last 24 hr 11/03/16 11/04/16 11/04/16 05:35 06:33 06:33 Hgb 8.8 L Hct 27 L INR (Anticoag Therapy) 1.07 Hemoglobin A1c 5.7 ] Assessment: [76 you female s/p L ADELE POD #2] Plan: [Pain management Con't PT/OT Lovenox for DVT prophylaxis while in house D/C home on aspirin 325 mg bid Plan for D/C home tomorrow ]
[2016-11-04] MEDS: Citalopram TAB* 10 MG PO SCH (09:34)
[2016-11-04] MEDS: Diltiazem CD CAP* 120 MG PO SCH (09:34)
[2016-11-04] MEDS: Vitamin THERAPEUTIC TAB PO SCH (09:35)
[2016-11-04] MEDS: Docusate CAP* 100 MG PO SCH ×2 (09:35→20:44)
[2016-11-04] MEDS: Enoxaparin(*) 30 MG/0.3 ML SYR SUBCUT SCH (09:37)
--- NOTE | 2016-11-04 18:53 | PN ---
Subjective Date of Service: 11/04/16 Interval History: Patient seen and examined at bedside. Pt states that her pain is controlled. Denies fever, chills, shortness of breath, chest discomfort, N/V/D. Pt states that she isn't getting her home methadone here and that she has a headache. Family History: Unchanged from Admission Social History: Unchanged from Admission Past Medical History: Unchanged from Admission Objective Active Medications: Acetaminophen (Tylenol Tab*) 650 mg PO Q4H PRN Reason: PAIN OR TEMPERATURE Atorvastatin Calcium (Lipitor*) 5 mg PO BEDTIME MERY Reason: Protocol Bisacodyl (Dulcolax Supp*) 10 mg VA DAILY PRN Reason: constipation Calcium Carbonate (Tums*) 500 mg PO Q4H PRN Reason: INDIGESTION Citalopram Hydrobromide (Celexa Tab*) 10 mg PO DAILY MERY Diltiazem HCl (Cardizem Cd Cap*) 120 mg PO DAILY MERY Diphenhydramine HCl (Benadryl Iv*) 25 mg IV Q6H PRN Reason: itching or insomnia Docusate Sodium (Colace Cap*) 100 mg PO BID MERY Enoxaparin Sodium (Lovenox(*)) 30 mg SUBCUT DAILY [facility] Sodium Chloride (Ns 0.9% 1000 Ml*) 1,000 mls @ 125 mls/hr IV PER RATE MERY Lactulose (Lactulose*) 30 ml PO Q6H PRN Reason: constipation Levothyroxine Sodium (Synthroid Tab*) 125 mcg PO DAILY@0600 MERY Magnesium Hydroxide (Milk Of Magnesia Liq*) 30 ml PO Q6H PRN Reason: constipation Morphine Sulfate (Morphine Inj (Syringe)*) 2 mg IV Q2H PRN Reason: PAIN - UNCONTROLLED Multivitamins (Theragran Tab*) 1 tab PO DAILY MERY Ondansetron HCl (Zofran Inj*) 4 mg IV Q6H PRN Reason: nausea Oxycodone HCl (Roxycodone Tab*) 10 mg PO Q4H PRN Reason: PAIN - SEVERE Oxycodone/Acetaminophen (Percocet 5/325 Tab*) 1 tab PO Q4H PRN Reason: PAIN - MODERATE Oxycodone/Acetaminophen (Percocet 5/325 Tab*) 2 tab PO Q3H PRN Reason: PAIN - MODERATE TO SEVERE Pharmacy Profile Note (Scopolomine Patch Remove*) 1 note PATCH OFF .AFTER 72 HOURS PRN Reason: nausea Stop: 11/05/16 13:28 Vital Signs 11/03/16 11/03/16 11/03/16 19:28 20:00 20:10 Temperature Pulse Rate Respiratory 16 16 16 Rate Blood Pressure (mmHg) O2 Sat by Pulse Oximetry 11/03/16 11/03/16 11/03/16 20:22 23:12 23:53 Temperature 98.7 F 98.5 F Pulse Rate 69 77 Respiratory 18 16 16 Rate Blood Pressure 120/42 124/46 (mmHg) O2 Sat by Pulse 94 93 Oximetry 11/04/16 11/04/16 11/04/16 00:00 01:12 03:29 Temperature 98.1 F Pulse Rate 79 Respiratory 16 16 Rate Blood Pressure 118/53 (mmHg) O2 Sat by Pulse 93 93 Oximetry 11/04/16 11/04/16 11/04/16 05:17 07:17 07:23 Temperature 98.2 F Pulse Rate 80 Respiratory 16 16 16 Rate Blood Pressure 117/50 (mmHg) O2 Sat by Pulse 94 Oximetry 11/04/16 11/04/16 11/04/16 08:00 09:35 11:11 Temperature 99.3 F Pulse Rate 84 Respiratory 18 18 16 Rate Blood Pressure 128/50 (mmHg) O2 Sat by Pulse 94 93 Oximetry 11/04/16 11/04/16 11/04/16 11:35 13:21 15:21 Temperature Pulse Rate Respiratory 18 18 18 Rate Blood Pressure (mmHg) O2 Sat by Pulse Oximetry 11/04/16 11/04/16 11/04/16 15:54 16:33 17:54 Temperature 98.7 F Pulse Rate 75 Respiratory 16 18 Rate Blood Pressure 112/43 (mmHg) O2 Sat by Pulse 93 95 Oximetry Oxygen Devices in Use Now: None Appearance: NAD, sitting up in a chair Ears/Nose/Mouth/Throat: Mucous Membranes Moist Respiratory: Symmetrical Chest Expansion and Respiratory Effort, Clear to Auscultation Cardiovascular: NL Sounds; No Murmurs; No JVD, RRR Abdominal: NL Sounds; No Tenderness; No Distention Skin: - - Dressing to left hip clean, dry and intact Neurological: Alert and Oriented x 3, NL Muscle Strength and Tone Lines/Tubes/Other Access: Clean, Dry and Intact Peripheral IV - site benign Nutrition: Taking PO's Result Diagrams: 11/04/16 06:33 11/03/16 05:35 Assess/Plan/Problems-Billing Assessment: Ms. Bradshaw is a 76 yo female with PMH significant for GERD, HTN, hypothyroidism, CVA, IN, fibromyalgia and arthritis who presented to the hospital for an elective total hip arthroplasty with Dr. Laureano. - Patient Problems (1) Status post total hip replacement, left Code(s): Z96.642 - PRESENCE OF LEFT ARTIFICIAL HIP JOINT SNOMED Code(s): 811420364564 Comment: - POD #2, management per Orthopedics - HH stable - Continue PT/OT, bowel regimen and pain control (2) Anemia Code(s): D64.9 - ANEMIA, UNSPECIFIED SNOMED Code(s): 045014154 Comment: - Normocytic - Suspect acute blood loss anemia secondary to surgery - HH stable (3) Hyponatremia Code(s): E87.1 - HYPO-OSMOLALITY AND HYPONATREMIA SNOMED Code(s): 18224913 Comment: - Corrected sodium for hyperglycemia is 132 (though glucose may be falsely elevated due to D5). (4) Hyperglycemia Code(s): R73.9 - HYPERGLYCEMIA, UNSPECIFIED SNOMED Code(s): 92821111 Comment: - Suspect it may have been drawn from the arm where the D5 was running, as it does not correlate to prior glucose readings - HgA1C - 5.7 (5) CAD (coronary artery disease) Code(s): I25.10 - ATHSCL HEART DISEASE OF [place] CORONARY ARTERY W/O ANG PCTRS SNOMED Code(s): 18138883 Comment: - She is allergic to aspirin, so she should be on plavix. She is unsure if she has been put on plavix. Okay to hold post-op and while on warfarin, but this needs to be addressed as an outpatient. - She should also be on a statin, atorvastain started. (6) CVA (cerebral vascular accident) Code(s): I63.9 - CEREBRAL INFARCTION, UNSPECIFIED SNOMED Code(s): 314487499 Comment: - She is allergic to aspirin, so she should be on plavix. Okay to hold post-op and while on warfarin, but this needs to be addressed as an outpatient. - She should also be on a statin, started on atorvastain. (7) Depression Code(s): F32.9 - MAJOR DEPRESSIVE DISORDER, SINGLE EPISODE, UNSPECIFIED SNOMED Code(s): 78398006 Comment: - Controlled - Continue Celexa (8) HTN (hypertension) Code(s): I10 - ESSENTIAL (PRIMARY) HYPERTENSION SNOMED Code(s): 99007459 Comment: - Controlled - Continue Cardizem (9) Hypothyroidism Code(s): E03.9 - HYPOTHYROIDISM, UNSPECIFIED SNOMED Code(s): 92973608 Comment: - TSH 2.08 on 10/28/16 - Continue Synthroid (10) Fibromyalgia Code(s): M79.7 - FIBROMYALGIA SNOMED Code(s): 953092055 Comment: - Pt takes Methadone at home - Resume when ok per orthopedics (11) DVT prophylaxis Current Visit: No Status: Acute Code(s): DSO6403 - SNOMED Code(s): 456117940 Comment: - Coumadin/Lovenox as per ortho (12) Full code status Code(s): Z78.9 - OTHER SPECIFIED HEALTH STATUS SNOMED Code(s): 224411370 Status and Disposition: Inpatient. Discharge per Orthopedics. Thank you for this consultation, will sign off at this time. Please call with any questions.
[2016-11-04] MEDS: Calcium Carbonate CHEW TAB* 500 MG (TUMS) PO PRN (20:23)
[2016-11-04] MEDS: Atorvastatin* 10 MG TAB PO SCH (20:43)
[2016-11-05] MEDS: oxyCODONE TAB* 5 MG TAB PO PRN ×2 (04:05→08:54)
[2016-11-05] MEDS: Levothyroxine TAB* 125 MCG TAB PO SCH (05:51)
[2016-11-05 08:43] LABS: Hematocrit 31 % (35-47); Hemoglobin 10.1 g/dl (12.0-16.0)
[2016-11-05] MEDS: Citalopram TAB* 10 MG PO SCH (08:53)
[2016-11-05] MEDS: Diltiazem CD CAP* 120 MG PO SCH (08:53)
[2016-11-05] MEDS: Vitamin THERAPEUTIC TAB PO SCH (08:54)
[2016-11-05] MEDS: Docusate CAP* 100 MG PO SCH (08:54)
[2016-11-05] MEDS: Enoxaparin(*) 30 MG/0.3 ML SYR SUBCUT SCH (08:55)
[2016-11-05 09:04] VITALS: BP 111/94
[2016-11-05] MEDS ORDERED: Morphine INJ* 2 MG/ML 1 ML SYRINGE (TWO MG - NEW SYRINGE VERSION) IV PRN (15:19)
--- NOTE | 2016-11-06 06:37 | DS ---
DISCHARGE SUMMARY: DATE OF ADMISSION: 11/02/16 DATE OF DISCHARGE: 11/05/16 ATTENDING PHYSICIAN: Leigh Ann Laureano MD * (DICTATED BY MELODIE VILLANUEVA) PRINCIPAL DIAGNOSIS: Left hip osteoarthritis. SECONDARY DIAGNOSES: 1. Urinary tract infection. 2. Myocardial infarction. 3. Hypertension. 4. Mitral valve prolapse. 5. Gastroesophageal reflux disease. 6. Spinal stenosis. 7. History of stroke. 8. Depression. 9. Anxiety. 10. Bipolar. 11. Hypothyroidism. 12. Fibromyalgia. 13. Melanoma. 14. Osteoarthritis. PRINCIPAL PROCEDURE: Left total hip arthroplasty. REASON FOR HOSPITALIZATION: Ms. Bradshaw is a 76-year-old female, who has had ongoing left hip pain due to severe osteoarthritis. She has failed conservative measures and wanted to proceed with a left total hip replacement with Dr. Laureano on 11/02/16. HOSPITAL COURSE: The patient was admitted on 11/02/16 for a left hip arthroplasty. She underwent surgery without any complications and was transferred to the recovery room and subsequently to the surgical stay unit in a stable condition. Her vital signs have remained stable throughout the hospital course and she was initially placed on Lovenox and Coumadin. She states that the Coumadin had in the past made her sick, it was decided that she will be placed on Xarelto for DVT prophylaxis. She had INR studies throughout her hospital course. INR on the day of discharge was 1.04. She has had hemoglobin and hematocrit drawn daily and on day of discharge, her hemoglobin was 10.1 and hematocrit was 31. She has had daily dressing changes. Incision has been clean, dry, and intact. She has undergone physical therapy and has done quite well. She has had no complications during her hospital stay and will be discharged to home on 11/05/16 in a stable condition. DISCHARGE INSTRUCTIONS: Weightbearing as tolerated to the left lower extremity. Continue with hip precautions. She will continue with Xarelto 10 mg daily for 21 days for DVT prophylaxis. She may shower with daily dressing changes with a dry sterile gauze. Her anyi will be removed on postop day # 10 and she will follow up with Dr. Laureano in 4 weeks. MELODIE VILLANUEVA [id number]/[facility] #: [id number] KIARA
== END 2016-11-05 11:55 | disposition home health service (06) | DRG 470 ==
LOC: AA 09:34 → SSU 17:14
PROVIDERS: ADMIT Orthopaedic Surgery Adult Reconstructive Orthopaedic Surgery; ATTEND Orthopaedic Surgery Adult Reconstructive Orthopaedic Surgery
PROC: 0SRB0JA Replacement of Left Hip Joint with Synthetic Substitute, Uncemented, Open Approach (ICD-10-PCS; principal; 2016-11-02 11:30)
DX: M16.12 Unilateral primary osteoarthritis, left hip (principal); E87.1 Hypo-osmolality and hyponatremia; D64.9 Anemia, unspecified; J44.9 Chronic obstructive pulmonary disease, unspecified; I34.1 Nonrheumatic mitral (valve) prolapse; I10 Essential (primary) hypertension; K21.9 Gastro-esophageal reflux disease without esophagitis; F41.9 Anxiety disorder, unspecified; F31.9 Bipolar disorder, unspecified; M79.7 Fibromyalgia; E89.0 Postprocedural hypothyroidism; Z96.641 Presence of right artificial hip joint; F17.210 Nicotine dependence, cigarettes, uncomplicated; R73.9 Hyperglycemia, unspecified; I25.10 Atherosclerotic heart disease of native coronary artery without angina pectoris; M47.9 Spondylosis, unspecified; I73.9 Peripheral vascular disease, unspecified; I65.23 Occlusion and stenosis of bilateral carotid arteries; M85.88 Other specified disorders of bone density and structure, other site; M85.68 Other cyst of bone, other site; Z82.0 Family history of epilepsy and other diseases of the nervous system; Z82.5 Family history of asthma and other chronic lower respiratory diseases; Z82.49 Family history of ischemic heart disease and other diseases of the circulatory system; Z91.048 Other nonmedicinal substance allergy status; Z91.041 Radiographic dye allergy status; Z88.8 Allergy status to other drugs, medicaments and biological substances; Z88.5 Allergy status to narcotic agent; Z88.2 Allergy status to sulfonamides; Z88.0 Allergy status to penicillin; Z88.6 Allergy status to analgesic agent; Z98.1 Arthrodesis status; Z90.710 Acquired absence of both cervix and uterus; Z85.820 Personal history of malignant melanoma of skin; Z87.440 Personal history of urinary (tract) infections; Z86.73 Personal history of transient ischemic attack (TIA), and cerebral infarction without residual deficits; I25.2 Old myocardial infarction
CPT/HCPCS: 36415; 80048; 83036; 85014; 85018; 85610; A9270-GY; C1713; C1776; J1100; J1650; J2250; J2270; J2405; J2704

== ENCOUNTER 2017-11-16 12:28 | Observation (INO) | payer MEDICARE ==
--- NOTE | 2017-11-16 13:11 | ED ---
Syncope/Near Syncope - HPI Summary HPI Summary: Time seen by Dr. Castle: 1256 This patient is a 77 year old F BIBA to ED accompanied by her neighbor with a chief complaint of syncope since 0800 and 1000. The patient woke up this morning at 0545. There were two episodes and she does not remember much of what happened between them. The patient remembers opening the door during the second onset. She reports she then was flying through the air to the left and her L shoulder hit the table and the front of her head hit an office chair. She was on the floor for about 10-15 minutes. The patient woke up at around 1030. The patient rates the pain 7/10 in severity. Symptoms aggravated by nothing. Symptoms alleviated by spontaneous resolution. Patient reports RLQ and LLQ abdominal pain and confusion after waking up from LOC. - History Of Current Complaint Chief Complaint: EDSyncope Time Seen by Provider: 11/16/17 12:48 Hx Obtained From: Patient Onset/Duration: Sudden Onset, Lasting Minutes, Resolved Timing: Frequency Of Episodes - 2 Context: Unwitnessed - 1st was unwitnessed, Witnessed - 2nd was witnessed by neighbor Activity At Onset: Other - 1st episode was at rest, 2nd was standing up Aggravating Factor(s): Nothing Alleviating Factor(s): Spontaneous Resolution Associated Signs And Symptoms: Other - LLQ abdominal pain and confusion after waking up from syncopal episode - Allergies/Home Medications Allergies/Adverse Reactions: Allergies Allergy/AdvReac Type Severity Reaction Status Date / Time aspirin Allergy Anaphylatic Verified 11/16/17 12:59 Shock chlorhexidine Allergy Rash Verified 11/16/17 12:59 docusate [From Colace] Allergy Nausea Verified 11/16/17 12:59 fentanyl Allergy Altered Verified 11/16/17 12:59 Mental Status iodine Allergy Anaphylatic Verified 11/16/17 12:59 Shock MS Fentanyl [Fentanyl] Allergy Altered Verified 11/02/16 09:42 Mental Status, itching Penicillins Allergy Anaphylatic Verified 11/16/17 12:59 Shock Sulfa (Sulfonamide Allergy Swelling Verified 11/16/17 12:59 Antibiotics) Of Face,Lips,& Throat "all antibiotics except Allergy Severe Hives, Uncoded 10/27/16 17:39 azithromyci tongue swelling, throat closing "all otc pain relievers" Allergy Severe Hives, Uncoded 10/27/16 17:39 TONGUE SWELLING, THROAT CLOSING contrast dye Allergy Severe Anaphylatic Uncoded 10/27/16 17:39 Shock NSAIDS Allergy Severe TONGUE Uncoded 10/27/16 17:39 SWELLS, THROAT CLOSES tape Allergy Severe Blisters Uncoded 10/27/16 17:39 Home Medications: Home Medications Citalopram TAB* [CeleXA TAB*] 40 mg PO QPM 11/16/17 [History Confirmed 11/16/17] Diltiazem CD CAP* [Cardizem CD CAP*] 120 mg PO DAILY 11/16/17 [History Confirmed 11/16/17] Levothyroxine TAB* [Synthroid TAB*] 125 mcg PO QAM 11/16/17 [History Confirmed 11/16/17] Meclizine TAB* [Antivert 12.5 TAB*] 12.5 - 25 mg PO Q4HR PRN 11/16/17 [History Confirmed 11/16/17] Primidone TAB(*) [Mysoline TAB(*)] 50 mg PO BID 11/16/17 [History Confirmed ] PMH/Surg Hx/FS Hx/Imm Hx Endocrine/Hematology History: Reports: Hx Thyroid Disease Denies: Hx Diabetes Cardiovascular History: Reports: Hx Angina - HX OF, Hx Coronary Artery Disease, Hx Hypertension, Hx Valvular Heart Disease - MVP, Other Cardiovascular Problems/ Disorders - MITRAL VALVE PROLAPSE Denies: Hx Congestive Heart Failure, Hx Pacemaker/ICD Respiratory History: Reports: Hx Sleep Apnea - DX BUT DOES NOT USE CPAP, Other Respiratory Problems/Disorders - DENIES COPD BUT HAS BILAT INSP WHEEZING, DENIES SOB BUT IS NOT AMBULATORY GI History: Reports: Hx Gastroesophageal Reflux Disease, Hx Hiatal Hernia - long time ago, resolved with weight loss, Hx Irritable Bowel - controlled with diet, Other GI Disorders - CONSTIPATION History: Reports: Hx Kidney Infection, Other Problems/Disorders - UTI recently used cranberry juice Denies: Hx Dialysis, Hx Renal Disease Musculoskeletal History: Reports: Hx Arthritis - OSTEO, Hx Back Problems, Hx Bursitis - one of shoulders, Hx Tendonitis Sensory History: Reports: Hx Cataracts, Hx Contacts or Glasses - READING Denies: Hx Hearing Aid Opthamlomology History: Reports: Hx Cataracts, Hx Contacts or Glasses - READING Neurological History: Reports: Hx Seizures - HX OF TREATMENT FOR MINOR SEIZURES SOMETIMES BETWEEN [id number], Hx Transient Ischemic Attacks (TIA), Other Neuro Impairments/Disorders - STATES SHE GETS FUZZY, SHE HAS VERTIGO, SEVERAL TIA'2015 Comment Only: Hx Nerve Disease - HX OF FIBROMYALAGIA Psychiatric History: Reports: Hx Anxiety, Hx Depression Denies: Hx Panic Disorder - Cancer History Cancer Type, Location and Year: SKIN CARCINOMA-YEARS AGO - Surgical History Surgery Procedure, Year, and Place: THYROIDECTOMY - 12/2012, [facility]. 1992 CSP -C3 ,4,C5-6= FUSION, [facility]. OVARIES REMOVED -2001, [place], [place]. 1977 UTERUS- REMOVED, [facility]. APPENDECTOMY - 1963, (STATES APPENDIX RUPTURED, BUT DENIES SURGERY). 1969 [place]EL[place]- [place] [facility] [place] - NO STENTS , [place], [place]. SPINAL SURGERY 2014. pylonidal cyst to lower spine surgicallly removed 1967 Hx Anesthesia Reactions: Yes - when given valium - changed in mentation - becomes mean - Immunization History Immunizations Up to Date: Yes Infectious Disease History: No Infectious Disease History: Reports: Hx Shingles - HX OF IN 2006 Denies: Hx Clostridium Difficile, Hx Hepatitis, Hx Human Immunodeficiency Virus (HIV), Hx of Known/Suspected MRSA, Hx Tuberculosis, History Other Infectious Disease, Traveled Outside the in Last 30 Days - Family History Known Family History: Positive: Cardiac Disease, Hypertension Negative: Diabetes - Social History Alcohol Use: None Substance Use Type: Reports: None Hx Tobacco Use: Yes Smoking Status (MU): Heavy Every Day Tobacco Smoker Type: Cigarettes Amount Used/How Often: 1/2 ppd since 1963 Length of Time of Smoking/Using Tobacco: 51 YEARS Have You Smoked in the Last Year: Yes Review of Systems Positive: Abdominal Pain - LLQ Positive: Other - L shoulder pain and frontal head trauma with pain Neurological: Other - confusion after waking up from LOC Positive: Syncope - 2 episodes All Other Systems Reviewed And Are Negative: Yes Physical Exam - Summary Physical Exam Summary: Appearance: Well appearing, no pain distress Skin: warm, dry, reflects adequate perfusion, abrasion in L elbow Head/face: normal Eyes: EOMI, JERICHO ENT: normal Neck: supple, non-tender Respiratory: CTA, breath sounds present Cardiovascular: RRR, pulses symmetrical Abdomen: Tenderness in LLQ, soft Bowel: present Musculoskeletal: normal, strength/ROM intact Neuro: normal, sensory motor intact, A&Ox3 GCS: 15 Triage Information Reviewed: Yes Vital Signs On Initial Exam: Initial Vitals Temp Pulse Resp BP Pulse Ox 97.9 F 72 18 134/68 97 11/16/17 12:52 11/16/17 12:52 11/16/17 12:52 11/16/17 12:52 11/16/17 12:52 Vital Signs Reviewed: Yes Diagnostics - Vital Signs Vital Signs Temp Pulse Resp BP Pulse Ox 11/16/17 12:52 97.9 F 72 18 134/68 97 - Laboratory Result Diagrams: 11/16/17 13:13 11/16/17 13:13 Lab Statement: Any lab studies that have been ordered have been reviewed, and results considered in the medical decision making process. - Radiology CXR Radiology Interpretation Completed By: Radiologist - NO ACTIVE CARDIOPULMONARY DISEASE IS NOTED. ED physician has reviewed this radiology report. - CT Brain CT CT Interpretation Completed By: Radiologist - NO ACUTE INTRACRANIAL PATHOLOGY. ED physician has reviewed this radiology report. Abd/Pel CT CT Interpretation Completed By: Radiologist - Negative for diverticulosis or diverticulitis. Large volume of stool present throughout the redundant colon. Negative for obstructive uropathy. Chronic appearing oblique sagittal oriented fracture through the RIGHT os pubis with associated osseous remodeling and flanking sclerosis. No acute fracture evident. ED physician has reviewed this radiology report. - EKG 1314 Cardiac Rate: NL - 64 BPM EKG Rhythm: Sinus Rhythm EKG Interpretation: No acute changes. National Institutes Of Health - NIH Scale Level of Consciousness: Alert/Keenly Responsive Ask Patient the Month and His/Her Age: Both Correct Ask Pt to Open/Close Eyes and Director Of Housing/Release Non-Paretic Hand: Both Correctly Best Gaze (Only Horizontal Eye Movement): Normal Visual Field Testing: No Visual Loss Facial Paresis-Pt to Smile & Close Eyes or Grimace Symmetry: Normal/Symmetrical Motor Function - Right Arm: No Drift-Holds 10 Seconds Motor Function - Left Arm: No Drift-Holds 10 Seconds Motor Function - Right Leg: No Drift-Holds 10 Seconds Motor Function - Left Leg: No Drift-Holds 10 Seconds Limb Ataxia-Must be out of Proportion to Weakness Present: Absent Sensory (Use Pinprick to Test Arms/Legs/Trunk/Face): Normal Best Language (Describe Picture, Name Items): No Aphasia Dysarthria (Read Several Words): Normal Extinction and Inattention: No Abnormality Total Score: 0 Course/Dx Assessment/Plan: This patient is a 77 year old F BIBA to ED accompanied by her neighbor with a chief complaint of syncope since 0800 and 1000. Blood work/UA obtained. CXR reveals NO ACTIVE CARDIOPULMONARY DISEASE IS NOTED. Brain CT reveals NO ACUTE INTRACRANIAL PATHOLOGY. Abd/Pel CT reveals negative for diverticulosis or diverticulitis. Large volume of stool present throughout the redundant colon. Negative for obstructive uropathy. Chronic appearing oblique sagittal oriented fracture through the RIGHT os pubis with associated osseous remodeling and flanking sclerosis. No acute fracture evident. The patient will be admitted to Dr. Adame. Patient understands and agrees with this plan. - Diagnoses Differential Diagnosis/HQI/PQRI: Positive: Cerebral Vascular Accident, Dysrhythmia, Hypovolemia, Myocardial Infarction, Transient Ischemic Attack, Other - syncope, fall, orthostatic hypertension, head injury Provider Diagnoses: Syncope, Fall, Head injury, Orthostatic hypertension - Physician Notifications Discussed Care of Patient With: Evan Adame Time Discussed With Above Provider: 15:00 Instructed by Provider To: Other - Consulted Dr. Adame who accepts the patient for admission. Discharge - Sign-Out/Discharge Documenting (check all that apply): Patient Departure - admit - Discharge Plan Condition: Stable Disposition: ADMITTED TO [facility] Referrals: Shane Fermin MD [Primary Care Provider] - - Billing Disposition and Condition Condition: STABLE Disposition: Admitted to [facility] - Attestation Statements Document Initiated by Scribe: Yes Documenting Scribe: Mohan Casiano Provider For Whom Kim is Documenting (Include Credential): Kumar Castle MD Scribe Attestation: Mohan Power, scribed for Kumar Castle MD on 11/16/17 at 1546. Scribe Documentation Reviewed: Yes Provider Attestation: The documentation as recorded by the Mohan ash accurately reflects the service I personally performed and the decisions made by , Kumar Castle MD
[2017-11-16] MEDS ORDERED: NS 0.9% 1000 ML* 1,000 ML IV ONE (13:26)
[2017-11-16 13:35] LABS: ABS Basophils 0.1 10^3/ul (0-0.2); ABS Eosinophils 0.2 10^3/ul (0-0.6); ABS Lymphocytes 1.8 10^3/ul (1.0-4.8); ABS Monocytes 0.6 10^3/ul (0-0.8); ABS Neutrophils 6.6 10^3/ul (1.5-7.7); ABS Nucleated RBC 0 10^3/ul; Eosinophil % 1.7 % (0-6); Hematocrit 36 % (35-47); Lymphocyte % 19.3 % (25-47); Mean Corpuscular HGB Conc 33 g/dl (31-36); Mean Corpuscular Hemoglobin 29 pg (27-31); Mean Corpuscular Volume 87 fL (80-97); Mean Platelet Volume 8.1 um3 (7.4-10.4); Nucleated Red Blood Cells % 0; Platelet Count 304 10^3/ul (150-450); Red Blood Count 4.15 10^6/ul (4.00-5.40); Red Cell Distribution Width 17 % (10.5-15); White Blood Count 9.2 10^3/ul (3.5-10.8)
[2017-11-16 13:38] LABS: INR 0.99 (0.77-1.02)
[2017-11-16 13:46] LABS: EGFR Non-African American 77.7 (>60)
--- NOTE | 2017-11-16 13:50 | RAD ---
Indication: Dizziness. Single frontal view of the chest performed at 1310 hours was reviewed. Comparison is made with previous exam dated July 22, 2017. No mediastinal shift is noted. Heart is of normal size and configuration. Lung cerrato appear clear. IMPRESSION: NO ACTIVE CARDIOPULMONARY DISEASE IS NOTED.
--- NOTE | 2017-11-16 14:30 | RAD ---
HISTORY: Syncope COMPARISONS: May 15, 2015 TECHNIQUE: Multiple contiguous axial CT scans were obtained of the head without intravenous contrast. FINDINGS: HEMORRHAGE/INFARCT: There is no hemorrhage or acute infarct. MASSES/SHIFT: There is no mass or shift. EXTRA-AXIAL SPACES: There are no extra-axial fluid collections. SULCI AND VENTRICLES: There is diffuse and proportional enlargement of the sulci and ventricles. CEREBRUM: There are no focal parenchymal abnormalities. BRAINSTEM: There are no focal parenchymal abnormalities. CEREBELLUM: There are no focal parenchymal abnormalities. VESSELS: The vessels are grossly normal. PARANASAL SINUSES: The paranasal sinuses are clear. ORBITS: The orbits are unremarkable. BONES AND SOFT TISSUE: No bone or soft tissue abnormalities are noted. OTHER: None IMPRESSION: NO ACUTE INTRACRANIAL PATHOLOGY.
--- NOTE | 2017-11-16 14:53 | RAD ---
INDICATION: Syncopal episode. LEFT lower quadrant pain. Question diverticulitis. Previous appendicitis however uncertain of appendectomy. COMPARISON: February 2016 CT pelvis. TECHNIQUE: Multidetector CT images were obtained from the lung bases to the ischial tuberosities. No oral contrast administered. Assessment of the visceral limited without IV contrast. Multiplanar reformation. REPORT: VISUALIZED INFERIOR THORAX: Mild bibasilar atelectasis. Mild cardiomegaly. LIVER / GALLBLADDER / PANCREAS / SPLEEN: Sharply circumscribed water density 2.1 cm cyst at the RIGHT posterior hepatic segment. Upper normal distention of the gallbladder and normal variant phrygian cap fold at the fundus of the gallbladder without suspicious CT finding of the gallbladder. Negative for biliary dilatation. Advanced atrophy of the pancreas without suspicious CT finding of the pancreas. Unremarkable spleen. ALIMENTARY TRACT: No CT abnormality of the unopacified upper GI or small bowel. No CT abnormality of the retrocecal to infra cecal appendix. Image quality at the pelvis limited due to beam hardening artifact from the bilateral prosthetic hips. Large volume of stool present throughout the redundant colon. Negative for colonic diverticulosis or other CT abnormality of the colon. Negative for perienteric inflammatory change. Negative for ascites or free air. Small fat-containing umbilical hernia without inflammatory change. MESENTERIC: Unremarkable. ADRENAL / GENITOURINARY: Normal adrenal glands. Small cortical cyst at the posterior midpole the LEFT kidney. Normal variant extrarenal pelves. Negative for nephrolithiasis or hydronephrosis. Unremarkable nondilated visualized ureters with the distal ureters obscured due to artifact at the pelvis. Artifact largely obscures the urinary bladder without gross abnormality. The uterus is not visualized. No abnormality evident at the adnexal regions. RETROPERITONEAL: Negative for lymphadenopathy. VASCULAR: Atherosclerotic calcification of normal diameter abdominal aorta and iliac arteries. Largely decompressed inferior vena cava BONES: Chronic appearing oblique sagittal oriented fracture through the RIGHT os pubis with associated osseous remodeling and flanking sclerosis. No acute fracture evident. Advanced multilevel lumbar spine degenerative spondylosis and facet joint osteoarthritis without significant change in comparison with the social media executive image from the prior exam. Associated reactive endplate sclerosis at L3-L4. SOFT TISSUE: Unremarkable. IMPRESSION: #. Negative for diverticulosis or diverticulitis. Large volume of stool present throughout the redundant colon. #. Negative for obstructive uropathy. #. Chronic appearing oblique sagittal oriented fracture through the RIGHT os pubis with associated osseous remodeling and flanking sclerosis. No acute fracture evident.
[2017-11-16] MEDS ORDERED: NS 0.9% 1000 ML* 1,000 ML IV SCH (16:00)
[2017-11-16] MEDS ORDERED: Meclizine TAB* 12.5 MG PO PRN (16:01)
[2017-11-16] MEDS ORDERED: Digoxin IV* 0.5 MG/2 ML AMP (0.25 MG/ML) IV SLOW PU ONE (16:10)
[2017-11-16 17:41] LABS: Urine Appearance Clear; Urine Blood Negative (Negative); Urine Color Yellow; Urine Ketones Negative (Negative); Urine Protein Negative (Negative); Urine Specific Gravity 1.009 (1.010-1.030); Urine Urobilinogen Negative (Negative)
[2017-11-16 17:43] LABS: Urine Red Blood Cell Trace(0-2/hpf) (Absent); Urine White Blood Cell Trace(0-5/hpf) (Absent)
[2017-11-16] MEDS: Citalopram TAB* 40 MG PO SCH (17:46)
--- NOTE | 2017-11-16 17:59 | RAD ---
Indication: Left knee pain after fall. 2 views of the left knee demonstrates joint space narrowing in the medial compartment. No fracture is identified. No joint effusion is noted. IMPRESSION: Unremarkable left knee.
--- NOTE | 2017-11-16 18:00 | RAD ---
Indication: Left leg pain and injury. 2 views of the left leg demonstrates no fracture. No other bone or joint abnormalities identified. IMPRESSION: No fracture of the left lower leg is noted.
--- NOTE | 2017-11-16 18:01 | RAD ---
Indication: Left shoulder pain. 4 views of left shoulder demonstrates no fracture. AC joint arthritis is noted. No other bone or joint abnormality is identified. IMPRESSION: No fracture of the left shoulder is noted.
[2017-11-16] MEDS: Primidone TAB(*) 50 MG PO SCH (20:21)
[2017-11-16] MEDS: Nystatin TOP POWDER* 15 GM BTL TOPICAL SCH (20:35)
[2017-11-16] MEDS: Senna TAB PO SCH (20:35)
[2017-11-16] MEDS: Methadone TAB* 10 MG PO PRN (21:32)
[2017-11-16] MEDS: Heparin VIAL(*) 5000 UNITS/ML VIAL (FIVE THOUSAND) SUBCUT SCH (21:35)
--- NOTE | 2017-11-17 03:23 | HP ---
CC: Dr. Fermin * HISTORY AND PHYSICAL: DATE OF ADMISSION: 11/16/17. PRIMARY CARE PROVIDER: Dr. Fermin. ATTENDING PHYSICIAN WHILE IN THE HOSPITAL: Dr. Nura Adame * (report dictated by Klaus Bateman NP). CHIEF COMPLAINT: Syncope. HISTORY OF PRESENT ILLNESS: Ms. Bradshaw is a 77-year-old female patient. She has a history of GERD, hypertension, hypothyroidism, fibromyalgia, DJD, CAD, [place] , CVA, history of mitral valve prolapse, and history of arthritis. She comes in to our ER today stating that she had an episode this morning. She was sitting in her chair and the next thing she knew, she woke up, there was a cooking show on. She does not remember if she fainted. She denied any chest pain prior to or after, said she was feeling somewhat lightheaded, but not really dizzy. She had some pain over her eye and some ringing in her ear, but that has now subsequently subsided. She heard the door reed ringing, her friend was there who delivers her meals on wheels. She got up to walk over there and then she remembers having a sense as if she fell. She does remember some elements of the fall, but not all of them, she is not sure if she fainted or not. She says that she thinks she may have blacked out, but she feels like she was moving in slow motion and may have had, she felt like she was floating, is what the patient said to me. She is unsure if she fainted or not. She denied having any chest pain with this episode. She denied having any abdominal pain. She says she has not had any recent fevers, or chills, and no changes in her medications recently. She says though she was concerned because of these episodes, she called her friend, who is an EMT, they recommended that she be evaluated in the ER and the EMS was summoned and she came in. She says that she denied any lightheadedness, dizziness, or vision changes. She says that she did not lose continence of urine or stool, although there were reports from her friend that she was shaking at one point and the patient does remember this. There has been no again reports of vomiting or diarrhea, and no recent change in medications. There was concern because of these episodes today and we were asked to evaluate for admission. PAST MEDICAL HISTORY: Significant for: 1. GERD. 2. Hypertension. 3. Hypothyroidism. 4. Fibromyalgia. 5. Degenerative disk disease. 6. CAD. 7. TN. 8. CVA. 9. Mitral valve prolapse. 10. Arthritis. PAST SURGICAL HISTORY: 1. She has had lumbar spine surgery x2. 2. Cervical spine surgery. 3. She has had left and right total hip replacements. 4. Hysterectomy. 5. Thyroidectomy. MEDICATIONS: Her home medications include: 1. Celexa 40 mg at bedtime. 2. Diltiazem 120 mg p.o. daily. 3. Methadone 10 mg p.o. every 12 hours as needed. 4. Primidone 50 mg p.o. b.i.d. 5. Synthroid 125 mcg daily. 6. Meclizine 12.5 to 25 mg every 4 hours as needed. ALLERGIES TO MEDICATIONS: Include ASPIRIN, CHLORHEXIDINE, COLACE, FENTANYL, IODINE, PENICILLIN. She is allergic to all ANTIBIOTICS except erythromycin, all [id number]-vwilwps pain relievers, IV DYE, NSAIDs, TAPE. FAMILY HISTORY: Mother at the age of 101-1/2 from old age. Father had a history of pneumonia. SOCIAL HISTORY: She is a half-a-pack a day smoker. She has been smoking her entire life since she was a teenager. She does not alcohol. She lives alone. She is not applying a surrogate decision maker at this point, she needs to think about it. REVIEW OF SYSTEMS: There is no documented fever. She denies having any significant weight change. There was no double vision. She denies having any ear discharge. There was no rhinorrhea. No sore throat. No thyroid enlargement. She denied having any chest pain. There was no orthopnea. There was no nocturnal dyspnea. She is denying having any abdominal pain. There was no nausea. No vomiting. No dysuria. No frequency. No seizure. Question of loss of consciousness. Review of 14 systems was completed, all others negative. PHYSICAL EXAMINATION GENERAL: At this time, Mrs. Bradshaw is a 77-year-old female patient. She is sitting in the ED stretcher. She does not appear to be in any acute distress. VITAL SIGNS: Blood pressure 154/84, the pulse is 66, respirations 18, O2 sat 95 %, temperature 97.9. HEENT: Head: Atraumatic, normocephalic. Eyes: EOMs intact. Sclerae anicteric, not pale. NECK: Supple. Throat: Oral mucosa appears to be moist. No oropharyngeal erythema. LUNGS: Clear to auscultation bilaterally. There were no wheezes, rales, or rhonchi. HEART: Sounds S1 and S2. She had a regular rate and rhythm. There were no murmurs, rubs, or gallops. ABDOMEN: Soft. It was flat. It was nontender. Bowel sounds were present. EXTREMITIES: Pulses were 2+ throughout. She did have pain on palpation to the left knee, and she had pain to the left hip as well. There was no obvious shortening or rotation of the leg. She had distal CSM checks and 5/5 strength. NEUROLOGICALLY: She is awake, alert. She is oriented x3. Her tongue is midline. Immigration Patrol Inspector were equal. She had no gross focal deficits. SKIN: Intact. She does have areas of erythema and irritation noted to her abdomen and groin, otherwise skin is intact. LABORATORY DATA/DIAGNOSTIC STUDIES: Her labs today reveals, WBC of 9.2, RBC of 4.15, hemoglobin of 12.0, hematocrit of 36, platelet count of 304. INR was 0.99. Sodium was 134, potassium 4.0, chloride 101, bicarb 26, BUN 8, creatinine 0.73, glucose 109. Lactate 0.7. Calcium 9. Total bili 0.4, AST 15, ALT 7. Alk phos 99. CK 81. Troponin 0. Albumin 4. Toxicology negative for alcohol. She had multiple imaging in the ED, starting out with a brain CT, which revealed no acute intracranial pathology. Chest x-ray obtained today, showed no active cardiopulmonary disease. Abdominal pelvis CT obtained today, negative for diverticulosis or diverticulitis. Large volume of stool present throughout the redundant colon. Negative for obstructive uropathy. Chronic appearing oblique sagittally oriented fracture to the right os pubis with associated osseous remodeling and flaking sclerosis. No acute fracture evident. She had an EKG obtained today as well, which showed normal sinus rhythm, rate of 64. No ST elevations or T-wave inversions were noted. Old medical records were reviewed. ASSESSMENT AND PLAN: Ms. Bradshaw is a 77-year-old female patient coming into the ED today with complaints of a syncopal episode. We were asked to evaluate for admission due to this. She will be admitted under observation status for: 1. Syncope. Again, question of syncope. Again, her story was not very clear, however, it does sound like she may have had a syncopal episode. I do think she deserves orthostatic blood pressures. In addition to this, we will go ahead and get an echo. We will also obtain telemetry. I will cycle her troponins 2 more times and we will continue to follow. Because of the fall on that left side, an x- ray of the left femur and the left knee, and also she is complaining of some left shoulder pain, which I am x-raying as well, and I will continue to follow. If there is any acute fracture, I will also get Orthopedics involved. I will check echo, place her on telemetry to monitor for any arrhythmias. We will continue to monitor. 2. Gastroesophageal reflux disease. Continue meds as prescribed. 3. Hypertension. Her blood pressure here was in the 160s, we will monitor this. When she came in, it was in the 130s. She may be in pain currently. We will continue to follow this, and if we need to, we can add second agents or titrate her agents. 4. Hypothyroidism. Continue her Synthroid. 5. Fibromyalgia. Continue p.r.n. pain medications. 6. Degenerative joint disease and arthritis. Continue meds as prescribed. In addition to this, p.r.n. Tylenol. 7. Coronary artery disease. She is allergic to ASPIRIN, but she is on diltiazem. She can follow up with her PCP. We may need to consider beta- pankaj at some point and some type of antiplatelet, but again, I will defer this to PCP. 8. History of cerebrovascular accident. Again, continue with secondary prevention, but she should be on an antiplatelet, but again, I will defer this to the primary. 9. Mitral valve prolapse. We will evaluate this with an echo. 10. DVT prophylaxis: She will be placed on heparin subcu. 11. Code status: Full code. 12. Fluids, electrolytes, and nutrition: She can have a heart-healthy diet. TIME SPENT: On admission 60 minutes, greater than half of that time spent face- to- face with the patient obtaining my history and physical, the other half of the time was spent going over the plan of care with the patient and implementing the plan of care. I discussed the plan with my attending, Dr. Adame; he is in agreement. KLAUS BATEMAN NP [id number]/CPS #: [id number] KIARA
[2017-11-17] MEDS: Heparin VIAL(*) 5000 UNITS/ML VIAL (FIVE THOUSAND) SUBCUT SCH ×3 (05:39→20:46)
[2017-11-17] MEDS: Levothyroxine TAB* 125 MCG TAB PO SCH (05:39)
[2017-11-17 07:48] LABS: ABS Basophils 0 10^3/ul (0-0.2); ABS Eosinophils 0.2 10^3/ul (0-0.6); ABS Lymphocytes 3.4 10^3/ul (1.0-4.8); ABS Monocytes 0.8 10^3/ul (0-0.8); ABS Neutrophils 6.1 10^3/ul (1.5-7.7); ABS Nucleated RBC 0 10^3/ul; Eosinophil % 2.3 % (0-6); Hematocrit 35 % (35-47); Hemoglobin 11.7 g/dl (12.0-16.0); Lymphocyte % 32.3 % (25-47); Mean Corpuscular HGB Conc 34 g/dl (31-36); Mean Corpuscular Hemoglobin 29 pg (27-31); Mean Corpuscular Volume 87 fL (80-97); Mean Platelet Volume 8.3 um3 (7.4-10.4); Nucleated Red Blood Cells % 0.1; Platelet Count 302 10^3/ul (150-450); Red Blood Count 3.99 10^6/ul (4.00-5.40); Red Cell Distribution Width 17 % (10.5-15); White Blood Count 10.5 10^3/ul (3.5-10.8)
[2017-11-17 08:03] LABS: EGFR Non-African American 81.6 (>60)
[2017-11-17] MEDS: Diltiazem CD CAP* 120 MG PO SCH (08:40)
[2017-11-17] MEDS: Primidone TAB(*) 50 MG PO SCH ×2 (08:41→20:46)
[2017-11-17] MEDS: Nystatin TOP POWDER* 15 GM BTL TOPICAL SCH ×3 (08:42→20:46)
[2017-11-17] MEDS: Methadone TAB* 10 MG PO PRN ×3 (09:03→22:17)
[2017-11-17] MEDS ORDERED: Perflutren Lipid Microsphere* 3 ML VIAL ONE (09:37)
[2017-11-17] MEDS ORDERED: oxyCODONE TAB* 5 MG TAB PO PRN (16:14)
--- NOTE | 2017-11-17 16:23 | ECHO ---
Patient: CASS WHEATLEY Rec#: [id number] : 1940 Date: 11/17/2017 Age: 77y Height: 165 cm / 65.0 in Weight: 68 kg / 149.9 lbs Sex: F BSA: 1.75 Room#: [facility] Admit Date#: 11/16/2017 Type: Inpatient Referring: Klaus Bateman NP Reading: Mayank Gunter DO Bearing Machine Operator: Charisse Lora RDCS,RDMS CC: Shane Fermin MD Transthoracic Echocardiogram Indication: Syncope BP: 116/52 HR: 67 Rhythm: NSR Findings History: CAD, [place], HTN, AFIB, TIA's, HTN, smoker Technical Comments: The study quality is fair. Left Ventricle: The left ventricular chamber size is normal. Mild concentric left ventricular hypertrophy is observed. Global left ventricular wall motion and contractility are within normal limits.LV false tendon noted There is normal left ventricular systolic function. The estimated ejection fraction is 55-60%. There is an E to A reversal in the mitral valve flow pattern suggestive of diastolic dysfunction. Left Atrium: The left atrium is mildly dilated. Right Ventricle: The right ventricular chamber size and systolic function are within normal limits. Right Atrium: The right atrial cavity size is normal. Aortic Valve: The aortic valve is trileaflet. The aortic valve leaflets are mildly thickened. Mild aortic leaflet calcification is visualized. Systolic excursion of the aortic valve is normal. There is no evidence of aortic regurgitation. There is no evidence of aortic stenosis. Mitral Valve: The mitral valve leaflets are mildly thickened. There is trace to mild mitral regurgitation. There is no evidence of mitral stenosis. Tricuspid Valve: The tricuspid valve leaflets are normal. There is no evidence of tricuspid valve regurgitation. Unable to estimate the right ventricular systolic pressure. Pulmonic Valve: The pulmonic valve structure is not well visualized. There is no evidence of pulmonic valve thickening. There is a trace pulmonic regurgitation. Pericardium: There is no significant pericardial effusion. Aorta: The aortic root appears normal. The aortic arch is not well visualized. Pulmonary Artery: The main pulmonary artery is not well visualized. Venous: The inferior vena cava appears normal in size. There is a greater than 50% respiratory change in the inferior vena cava dimension. Contrast: Definity was used to optimize study. A total of 2.5 ml was used Conclusions The left ventricular chamber size is normal. Mild concentric left ventricular hypertrophy is observed. Global left ventricular wall motion and contractility are within normal limits. There is normal left ventricular systolic function. The estimated ejection fraction is 55-60%. The left atrium is mildly dilated. The right ventricular chamber size and systolic function are within normal limits. No significant valvular abnormalities noted Definity was used to optimize study. Compared to prior study from 09/2016, no significant changes noted Measurements Name Value Normal Range RVIDd (AP) 2D 1.9 cm (0.9 - 2.6) RVDdMajor (2D) 2.2 cm (2.2 - 4.4) RAd ISD 4CH 4.7 cm (3.4 - 4.9) RA (A4C)W 3.4 cm (2.9 - 4.6) IVSd (2D) 1.1 cm (0.6 - 1) LVPWd (2D) 1.1 cm (0.6 - 1) LVIDd (2D) 4.6 cm (3.6 - 5.4) LVIDs (2D) 2.9 cm - LV FS (2D) 37 % (25 - 45) Aortic Annulus 2 cm (1.4 - 2.6) Ao root diameter (2D) 2.7 cm (2.1 - 3.5) Ascending Ao 2.6 cm (2.1 - 3.4) LA dimension (AP) 2D 3.8 cm (2.3 - 3.8) LAd ISD 4CH 5.6 cm (2.9 - 5.3) LA ISD 4CH W 3.9 cm (2.5 - 4.5) Name Value Normal Range LA ESV BP (A/L) index 35 ml/m2 - Name Value Normal Range MV E-wave Vmax 0.7 m/sec - MV deceleration time 174 msec - MV A-wave Vmax 1.1 m/sec - MV E:A ratio 0.6 ratio - LV septal e' Vmax 0.09 m/sec - LV lateral e' Vmax 0.1 m/sec - LV E:e' septal ratio 8 ratio - LV E:e' lateral ratio 7 ratio - Name Value Normal Range AV Vmax 1.2 m/sec - AV VTI 30 cm - AV peak gradient 6 mmHg - AV mean gradient 3 mmHg - LVOT Vmax 0.9 m/sec - LVOT VTI 22 cm - LVOT peak gradient 3.2 mmHg - LVOT mean gradient 2 mmHg - BINU Vmax 0.5 m/sec - Name Value Normal Range RAP 8 mmHg - IVC diameter 1.8 cm - Name Value Normal Range PV Vmax 1 m/sec - PV peak gradient 4 mmHg -
[2017-11-17] MEDS: Citalopram TAB* 40 MG PO SCH (17:03)
--- NOTE | 2017-11-17 17:11 | PN ---
Subjective Date of Service: 11/17/17 Interval History: Ms. Bradshaw continues to experience lightheadedness throughout the day today. Complaining of headache and associated diaphoresis for most of the day. She became quite agitated regarding her methadone and the frequency that she was receiving it here. Denies CP, SOB, N/V. Family History: Unchanged from Admission Social History: Unchanged from Admission Past Medical History: Unchanged from Admission Objective Active Medications: Citalopram Hydrobromide (Celexa Tab*) 40 mg PO QPM MERY Diltiazem HCl (Cardizem Cd Cap*) 120 mg PO DAILY MERY Heparin Sodium (Porcine) (Heparin Vial(*)) 5,000 units SUBCUT Q8HR MERY Sodium Chloride (Ns 0.9% 1000 Ml*) 1,000 mls @ 100 mls/hr IV PER RATE MERY Levothyroxine Sodium (Synthroid Tab*) 125 mcg PO 0600 MERY Meclizine HCl (Antivert Tab*) 25 mg PO Q8H PRN Methadone HCl (Dolophine Tab*) 10 mg PO Q6H PRN Nystatin (Nystatin Top Powder*) 1 applic TOPICAL TID MERY Oxycodone HCl (Roxycodone Tab*) 5 mg PO Q8H PRN Primidone (Mysoline Tab(*)) 50 mg PO BID MERY Senna (Senokot Tab*) 2 tab PO BEDTIME MERY Vital Signs - 8 hr 11/17/17 11/17/17 11/17/17 11:21 11:26 15:27 Temperature 98.3 F 97.8 F Pulse Rate 62 63 Respiratory 18 16 16 Rate Blood Pressure 149/71 135/69 (mmHg) O2 Sat by Pulse 96 96 Oximetry Oxygen Devices in Use Now: None Appearance: Elderly female sitting in bed in no acute distress. Eyes: No Scleral Icterus, PERRLA Ears/Nose/Mouth/Throat: NL Teeth, Lips, Gums, Mucous Membranes Moist Neck: NL Appearance and Movements; NL JVP, Trachea Midline Respiratory: Symmetrical Chest Expansion and Respiratory Effort, Clear to Auscultation Cardiovascular: NL Sounds; No Murmurs; No JVD, RRR, No Edema Abdominal: NL Sounds; No Tenderness; No Distention, No Hepatosplenomegaly Extremities: No Edema Skin: No Rash or Ulcers Neurological: Alert and Oriented x 3 Lines/Tubes/Other Access: Clean, Dry and Intact Peripheral IV Nutrition: Taking PO's Result Diagrams: 11/17/17 06:48 11/17/17 06:48 Assess/Plan/Problems-Billing Assessment: Ms. Bradshaw is a 77yo female with PMH of [place], CAD, CVA, HTN, mitral valve prolapse, and fibromyalgia, who presents with c/o syncope. - Patient Problems (1) Syncope Current Visit: Yes Status: Acute Priority: High Code(s): R55 - SYNCOPE AND COLLAPSE SNOMED Code(s): 616171805 Comment: - Negative trops x3 - Echo shows EF 55-60%, normal systolic function - No tele abnormalities - Orthostatic in ED - Repeat orthostatic VS - PT consult (2) CAD (coronary artery disease) Current Visit: Yes Status: Chronic Priority: Medium Code(s): I25.10 - ATHSCL HEART DISEASE OF [place] CORONARY ARTERY W/O ANG PCTRS SNOMED Code(s): 77021111 Comment: - Continue diltiazem (3) HTN (hypertension) Current Visit: Yes Status: Chronic Priority: Medium Code(s): I10 - ESSENTIAL (PRIMARY) HYPERTENSION SNOMED Code(s): 66153808 Comment: - Continue Cardizem (4) Fibromyalgia Current Visit: Yes Status: Chronic Priority: Medium Code(s): M79.7 - FIBROMYALGIA SNOMED Code(s): 542473186 Comment: - Continue methadone q6h - Question if heavy narcotic use is contributing to syncope (5) GERD (gastroesophageal reflux disease) Current Visit: Yes Status: Chronic Priority: Medium Code(s): K21.9 - GASTRO-ESOPHAGEAL REFLUX DISEASE WITHOUT ESOPHAGITIS SNOMED Code(s): 719620194 Comment: - Not on home medications (6) Hypothyroidism Current Visit: Yes Status: Chronic Code(s): E03.9 - HYPOTHYROIDISM, UNSPECIFIED SNOMED Code(s): 47991723 Comment: - Continue synthroid (7) Mitral valve prolapse Current Visit: Yes Status: Chronic Priority: Medium Code(s): I34.1 - NONRHEUMATIC MITRAL (VALVE) PROLAPSE SNOMED Code(s): 929376189 Comment: - Not noted on echo (8) History of CVA (cerebrovascular accident) Current Visit: Yes Status: Chronic Priority: Medium Code(s): Z86.73 - PRSNL HX OF TIA (TIA), AND CEREB INFRC W/O RESID DEFICITS SNOMED Code(s): 729258210 Comment: - No notable residual (9) Full code status Current Visit: Yes Status: Acute Priority: High Code(s): Z78.9 - OTHER SPECIFIED HEALTH STATUS SNOMED Code(s): 176336885 (10) DVT prophylaxis Current Visit: Yes Status: Acute Priority: High Code(s): AVN8234 - SNOMED Code(s): 100581661 Comment: - Heparin SQ Status and Disposition: Observation. Discharge tomorrow pending PT consult.
[2017-11-17] MEDS: Senna TAB PO SCH (20:47)
[2017-11-18] MEDS: Methadone TAB* 10 MG PO PRN ×2 (04:06→10:03)
[2017-11-18] MEDS: Heparin VIAL(*) 5000 UNITS/ML VIAL (FIVE THOUSAND) SUBCUT SCH ×2 (05:14→14:38)
[2017-11-18] MEDS: Levothyroxine TAB* 125 MCG TAB PO SCH (05:14)
[2017-11-18] MEDS: Primidone TAB(*) 50 MG PO SCH (08:44)
[2017-11-18] MEDS: Diltiazem CD CAP* 120 MG PO SCH (08:44)
[2017-11-18] MEDS: Nystatin TOP POWDER* 15 GM BTL TOPICAL SCH ×2 (08:45→14:39)
[2017-11-18 12:54] VITALS: BP 146/60
--- NOTE | 2017-11-19 04:36 | DS ---
CC: Dr. Fermin * DISCHARGE SUMMARY: DATE OF ADMISSION: 11/16/17 DATE OF DISCHARGE: 11/18/17 PRIMARY CARE PROVIDER: Dr. Fermin. PRIMARY DIAGNOSIS: Syncope. SECONDARY DIAGNOSES: Include: 1. Gastroesophageal reflux disease. 2. Hypertension. 3. Hypothyroidism. 4. Fibromyalgia. 5. Degenerative disk disease. 6. Coronary artery disease. 7. Myocardial infarction. 8. Cerebrovascular accident. 9. Chronic pain. MEDICATIONS ON DISCHARGE: The patient AMA'd, left prior to medication reconciliation. So home medications were continued unchanged include: 1. Flexeril 10 mg twice daily. 2. Methadone 10 mg every 6 hours. 3. Diltiazem CD 120 mg daily. 4. Primidone 50 mg twice daily. 5. Levothyroxine 125 mcg daily. 6. Citalopram 40 mg daily. 7. Meclizine 12.5 to 25 mg every 4 hours as needed, this is very similar to how she would have been med reconciled. PERTINENT IMAGING STUDIES: 1. CT abdomen and pelvis negative for diverticulosis or diverticulitis. There is a large volume of stool present throughout the redundant colon. Negative for obstructive uropathy. Chronic appearing oblique sagittally oriented fracture to the right os pubis with associated osseous remodeling and sclerosis. 2. Knee x-ray left, impression: Unremarkable left knee. 3. Lower extremity x-ray, lower left leg, impression: No fracture of the left lower leg. 4. Left shoulder 2-view x-ray, no fracture of the left shoulder. 5. Transthoracic echocardiogram, impression: Left ventricular chamber size normal with mild concentric left ventricular hypertrophy. Global left ventricular wall motion and contractility within normal limits, LVEF is 55% to 60%, the left atrium is mildly dilated, the right ventricular chamber size and systolic function within normal limits, no significant valvular abnormalities. PERTINENT LABORATORY DATA: Hemoglobin on the day prior to discharge 11.7, troponin I is 0.00 on 3 consecutive checks. Toxicology was negative for alcohol. DISPOSITION ON DISCHARGE: The patient left against medical advice. HISTORY OF PRESENT ILLNESS AND HOSPITAL COURSE: This is a 77-year-old female with past medical history as outlined in the history of present illness on day of admission presented to the hospital with question of loss of consciousness/ syncope. However from the history, it was unclear whether she had a true loss of consciousness. When I asked on the day of her discharge and my evaluation she said she went "flying across the room throwing her bag of chips." She had the workup as indicated above indicating minimal abnormalities on her echocardiogram, CT abdomen and pelvis or extremity plain films. Of note, the patient was orthostatic on 11/16/17 with her lying blood pressure 150/67, declined to 128/62 when standing with a minimal increase in her heart rate from 64 to 74, potentially indicating autonomic instability or blunting. She was treated with IV fluids during the course of her hospital stay and is not orthostatic on the day of discharge. As I went to evaluate the patient prior to discharge and she was standing, very aggressive to this author, yelling about nurses lying to her about how many heparin injections she has got and the significant pain that she was in. She was fairly combative, would not engage with this author regarding what her pain was or if the interventions could be performed, or medication delivered to augment this and make her more comfortable. She wanted to leave at that moment. I performed a capacity evaluation. The patient was fully oriented, had an understanding what her other concerns were should she leave without my ability to fully talk to her, evaluate her symptomatology and __concerns____ since admission as well as perform a complete physical exam. She was resolute that she will leave regardless and did disagree with my assessment that potential complications of leaving against my advice would include falls, head injury, head strike, potentially myocardial infarction, severe disability, and/or from unidentified reasons given my inability to fully evaluate her history and perform a physical exam on the day of discharge. It is my impression she was of sound state of mind to make this decision. During the course of conversation , she was notably shaky in her arms and quite aggressive as indicated above. She could not indicate whether she was receiving less opioids than she does at home. Her last dose of methadone was at 10 a.m. this morning, she was evaluated at 3 p.m. It is my impression that she was withdrawing from her opioids and I do highly suspect narcotic abuse at home and which may have been an etiology of her loss of consciousness prior to presentation, dehydration, and overall presentation to this hospital. I would caution prescribers any further administration of methadone to this patient. The patient was counseled to return to the hospital at will and without penalty for any worrisome symptoms to include recurrent or worsening symptoms including chest pain or shortness of breath, nausea, vomiting, lightheadedness, or loss of consciousness, near loss of consciousness, inability to obtain or tolerate medication. TIME SPENT: Greater than 50 minutes was spent on the discharge of this patient before she left AMA. The patient did sign paperwork indicating we had had the aforementioned conversation including all the risks entailed as indicated in the body of this report as well as alternatives to leaving against medical advice. [id number]/CPS #: [id number] KIARA
== END 2017-11-18 13:45 | disposition home or self-care (01) ==
LOC: ED 12:28 → MEDTELE 15:52
PROVIDERS: ADMIT Internal Medicine; ATTEND Internal Medicine
DX: R55 Syncope and collapse (principal); K21.9 Gastro-esophageal reflux disease without esophagitis; I10 Essential (primary) hypertension; E03.9 Hypothyroidism, unspecified; M79.7 Fibromyalgia; I25.10 Atherosclerotic heart disease of native coronary artery without angina pectoris; I25.2 Old myocardial infarction; Z86.73 Personal history of transient ischemic attack (TIA), and cerebral infarction without residual deficits; G89.29 Other chronic pain; Z79.899 Other long term (current) drug therapy; Z88.2 Allergy status to sulfonamides; Z88.0 Allergy status to penicillin; Z88.8 Allergy status to other drugs, medicaments and biological substances; F17.210 Nicotine dependence, cigarettes, uncomplicated; Z88.1 Allergy status to other antibiotic agents; I34.1 Nonrheumatic mitral (valve) prolapse; I51.7 Cardiomegaly
CPT/HCPCS: 36415; 70450; 71045; 74176; 80048; 80053; 80320; 81003; 81015; 82550; 83605; 84484; 85025; 85610; 87086; 93005; 93306; 96360; 96361; 99284; A9270-GY; C8929; G0378; G0480; G8978-GP-CH; G8979-GP-CH; G8980-GP-CH; J1644